=== PATIENT | male | born 1960 | race Caucasian/White ===

== ENCOUNTER 2019-10-23 15:27 | Inpatient (IN) | payer BC, OTHER, SELFPAY ==
[2019-10-23] MEDS ORDERED: Acetaminophen 325 MG TAB PO PRN (18:21)
[2019-10-23] MEDS ORDERED: Guaifenesin DM 100-10/5 ML UDCUP PO PRN (18:21)
--- NOTE | 2019-10-23 18:32 | PDOC.HHP ---
Hospitalist HPI - History of Present Illness SOB History of Present Illness: PCP: Dr. Varela Glennie The patient is a 59/M with PMH significant for HTN and MEHNAZ that presents for the above complaint. The patient reports gradual onset of SOB over the past 3 weeks. Reports associated intermittent, productive cough, with white sputum and orthopnea. He was waking, feeling SOB over the past several days, so he thought it might be related to his MEHNAZ, so he trialed his CPAP at night, which gave him no improvement with symptoms. On Tuesday, he developed swelling to his Bilateral Lower Extremities. He reports approximately 10 pound weight gain over past month. He denies any chest pain or heart palpitations or light headedness. Denies any recent fever or chills. He has no other complaints at this time. ED Course: [facility] EKG Sinus Tachycardia, and hypertensive Trop 0.21, BNP 1115.2 CXR + bilateral pleural effusions CTA chest negative PE WBC 12.6 COVID test - pending TSh and mag unremarkable Creatinine 1.35 Given: Lasix 20mg IVP Nitro paste 1 inch Allergies: NKDA Home Medications: No home medications Hospitalist ROS - Review of Systems Constitutional: denies: fever, chills, sweats, weakness, malaise, other Eyes: denies: pain, vision change, conjunctivae inflammation, eyelid inflammation, redness, other ENT: denies: ear pain, ear discharge, nose pain, nose discharge, nose congestion , mouth pain, mouth swelling, throat pain, throat swelling, other Respiratory: reports: cough, shortness of breath (gradual), sputum (white) Cardiovascular: reports: orthopnea, edema (BLEs). denies: chest pain, palpitations, paroxysmal noc. dyspnea, light headedness Gastrointestinal: denies: nausea, vomiting, abdominal pain, diarrhea, constipation, melena, hematochezia, other Genitourinary: denies: dysuria, frequency, incontinence, hematuria, retention, other Musculoskeletal: denies: neck pain, shoulder pain, arm pain, back pain, hand pain, leg pain, foot pain, other Skin: denies: rash, lesions, aye, bruising, other Neurological: denies: weakness, numbness, incoordination, change in speech, confusion, seizures, other Hospitalist History - Past Medical History Source: patient Cardiac: reports: HTN (no pharmacotherapy 2/2 weight loss 30 lbs) Pulmonary: reports: Other (MEHNAZ, does not use CPAP 2/2 weight loss) - Social History Tobacco Type: cigars Alcohol: reports: Rare Drugs: reports: none Living Situation: With Family 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, in [place], insurance sales Activity level: independent ambulation - Exam General Appearance: NAD, awake alert Eye: anicteric sclera ENT: normocephalic atraumatic Neck: supple, no JVD Heart: RRR, no murmur, no gallops, no rubs, normal peripheral pulses Heart - other findings: tachycardic Respiratory: no tachypnea, rales, rhonchi, wheezes Gastrointestinal: soft, non-tender, normal bowel sounds, no guarding, no rigidity Extremities: no cyanosis, 1+ LE edema Extremities - other findings: BLEs Neurological: no focal deficits Musculoskeletal: normal tone, normal strength Psychiatric: normal affect, A&O x 3 Hospitalist Results - EKG Interpretation EKG: sinus tachycardia - Radiology Interpretation CT scan - chest Status: report reviewed by oh Hospitalist H&P A/P - Problem (1) Acute exacerbation of CHF (congestive heart failure) Code(s): I50.9 - HEART FAILURE, UNSPECIFIED Status: Acute Assessment and Plan: Admit to telemetry floor, observation status Expected length of stay less than [address], CXR B pleural effusion, CTA negative PE BNP 1115, Trop 0.21 w/ BLE swelling Given 20mg IVP lasix in ER, 1700 UOP Continue lasix 20mg IVP daily echocardiogram DW, fluid restriction Nitropaste, ASA Check FLP (2) BRADLY (acute kidney injury) Code(s): N17.9 - ACUTE KIDNEY FAILURE, UNSPECIFIED Status: Acute Assessment and Plan: Mild, creatinine 1.35 Likely pre renal Will recheck in am (3) Suspected COVID-19 virus infection Code(s): Z20.828 - CONTACT W AND EXPOSURE TO OTH VIRAL COMMUNICABLE DISEASES Status: Acute Assessment and Plan: Droplet precautions COVID test pending (4) Proteinuria Code(s): R80.9 - PROTEINURIA, UNSPECIFIED Status: Acute Assessment and Plan: UA protein 300 Will check urine creatinine (5) HTN (hypertension) Code(s): I10 - ESSENTIAL (PRIMARY) HYPERTENSION Status: Chronic Assessment and Plan: Patient has no pharmacotherapy secondary to weight loss/lifestyle changes Will monitor BP (6) MEHNAZ (obstructive sleep apnea) Code(s): G47.33 - OBSTRUCTIVE SLEEP APNEA (ADULT) (PEDIATRIC) Status: Chronic Assessment and Plan: Patient does not use CPAP secondary to weight loss/Lifestyle changes - Plan Plan: Consult cardiac rehab Pepcid GI prophylaxis Heparin DVT prophylaxis Full Code MPOA is Patti Cruz at [phone] Hernandez
[2019-10-23 19:09] LABS: Troponin I 0.033 ng/mL (< 0.028)
[2019-10-23] MEDS: Nitroglycerin 2% Ointment 1 INCH/1 GM Packet TOP SCH (22:29)
[2019-10-23] MEDS: Famotidine 20 MG TAB PO SCH (22:29)
[2019-10-24 05:00] LABS: #Basophils 0.1 thou/uL (0.0-0.2); #Eosinphils 0.4 thou/uL (0.0-0.7); #Lymphocytes 2.8 thou/uL (1.20-3.40); #Neutrophils 6.5 thou/uL (1.40-6.50); %Eosinophils 4.1 % (0.0-10.0); %Lymphocytes 25.9 % (21.0-51.0); %Monocytes 9.2 % (0.0-10.0); %Neutrophils 59.9 % (42.0-75.0); Hemoglobin 14.5 g/dL (14.0-18.0); Mean Corpuscular HGB CONC 32.4 g/dL (32.0-36.0); Mean Corpuscular Hemoglobin 30.4 pg (27.0-31.0); Mean Corpuscular Volume 93.8 fL (78.0-98.0); Mean Platelet Volume 8.7 fL (7.4-10.4); Platelet Count 217 thou/uL (130-400); Red Blood Cell (RBC) Count 4.75 mill/uL (4.70-6.10); White Blood Cell (WBC) Count 10.8 thou/uL (4.8-10.8)
[2019-10-24 05:27] LABS: Anion Gap 15 mmol/L (10-20); BUN (Urea Nitrogen) 14 mg/dL (8.4-25.7); Calc. Creatinine Clearance 99 mL/min (70-130); Calcium 8.8 mg/dL (7.8-10.44); Carbon Dioxide 23 mmol/L (22-29); Cardiac Risk 6.1 (Less than 4.5); Chloride 107 mmol/L (98-107); Cholesterol 122 mg/dl (< 200 Desired); Estimated GFR-MDRD 61; Glucose 94 mg/dL (70-105); HDL Cholesterol 20 mg/dL (>60 Neg Risk); LDL Cholesterol, Calculated 87 mg/dL; Potassium 3.8 mmol/L (3.5-5.1); Sodium 141 mmol/L (136-145); Triglycerides 73 mg/dL (Less than 150)
[2019-10-24] MEDS ORDERED: Furosemide 20 MG/2 ML VIAL SLOW IVP SCH (06:00)
[2019-10-24] MEDS: Nitroglycerin 2% Ointment 1 INCH/1 GM Packet TOP SCH ×3 (06:25→21:03)
--- NOTE | 2019-10-24 07:58 | ULT ---
VENOUS DOPPLER ULTRASOUND OF THE RIGHT LOWER EXTREMITY: HISTORY: Right lower extremity pain and edema. TECHNIQUE: Tran scale ultrasound with color and spectral Doppler imaging of the deep venous system of the right lower extremity was performed. FINDINGS: There is good flow, compression, and augmentation noted in the right common femoral, femoral, deep fe moral, popliteal, posterior tibial, and greater saphenous veins. IMPRESSION: No evidence of deep vein thrombosis in the right lower extremity. POS: MARTINA
[2019-10-24] MEDS ORDERED: Enoxaparin Sodium 40 MG/0.4 ML SYRINGE SC SCH (09:00)
[2019-10-24] MEDS: Famotidine 20 MG TAB PO SCH ×2 (09:05→20:51)
[2019-10-24] MEDS: Aspirin Chewable 81 MG TAB PO SCH (09:05)
--- NOTE | 2019-10-24 12:53 | PDOC.HOSPP ---
- Subjective Encounter Date: 10/24/19 Encounter Time: 09:50 Subjective: denies any CP; covid neg. - Objective Vital Signs & Weight: Vital Signs (12 hours) Temp Pulse Resp BP Pulse Ox 10/24/19 12:30 98.0 F 119 H 20 121/85 96 10/24/19 08:55 98.6 F 114 H 16 140/95 H 95 10/24/19 06:00 97.7 F 101 H 22 H 120/90 95 Weight Weight 228 lb I&O: 10/23/19 10/24/19 10/25/19 06:59 06:59 06:59 Intake Total 1080 480 Output Total 2650 950 Balance -1570 -470 Result Diagrams: 10/24/19 04:43 10/24/19 04:43 Hospitalist ROS - Medication Medications: Active Medications Generic Name Dose Route Start Last Admin Trade Name Freq PRN Reason Stop Dose Admin Acetaminophen 650 mg 10/23/19 18:21 10/23/19 23:21 Tylenol PO 650 mg Q4H PRN Administration Headache/Fever/Mild Pain (1-3) Aspirin 81 mg 10/24/19 09:00 10/24/19 09:05 Aspirin Chewable PO 81 mg DAILY LAVERNE Administration Enoxaparin Sodium 40 mg 10/24/19 09:00 10/24/19 09:04 Lovenox SC 40 mg DAILY LAVERNE Administration Famotidine 20 mg 10/23/19 21:00 10/24/19 09:05 Pepcid PO 20 mg BID LAVERNE Administration Nitroglycerin 0.5 inch 10/23/19 22:00 10/24/19 06:25 Nitro-Bid 2% Ointment TOP 0.5 inch Q8HR LAVERNE Administration Sodium Chloride 10 ml 10/23/19 18:21 10/24/19 09:04 Flush - Normal Saline IVF 10 ml PRN PRN Administration Saline Flush - Exam General Appearance: NAD, awake alert Eye: PERRL ENT: normocephalic atraumatic Neck: supple Heart: RRR Respiratory: CTAB, normal chest expansion Gastrointestinal: soft, normal bowel sounds Neurological: no focal deficits Hosp A/P - Plan (1) Acute exacerbation of CHF (congestive heart failure) --i/output and wts daily - increased lasix to 40 bid -echocardiogram -Nitropaste, ASA -it does not appear that he is on any BP meds at home Abnomal troponin --type II, metabolic mismatch with CHF excerbation? Hyperlipidemia with LDL of 87 --goal < 70; start lipitor (2) BRADLY (acute kidney injury) Code(s): N17.9 - ACUTE KIDNEY FAILURE, UNSPECIFIED Status: Acute Assessment and Plan: Mild, creatinine 1.35 Likely pre renal Will recheck in am (3) Suspected COVID-19 virus infection - neg (4) Proteinuria without diabetes? -very mild < 10 - will get a1c, though BG < 100 - tachycardia and elev BP (5) HTN (hypertension) -no home meds - starting empirically on lopressor until echo rpt reviewed (6) MEHNAZ (obstructive sleep apnea)- Patient does not use CPAP secondary to weight loss/Lifestyle changes MPOA is Patti Cruz at [phone]
[2019-10-24] MEDS ORDERED: Metoprolol Tartrate 5 MG/5 ML VIAL IVP PRN (13:01)
[2019-10-24] MEDS: Furosemide 40 MG/4 ML VIAL SLOW IVP SCH (15:33)
[2019-10-24] MEDS ORDERED: Digoxin 0.5 MG/2 ML AMP SLOW IVP SCH (16:45)
[2019-10-24] MEDS ORDERED: Communication Order-Pharmacy FS SCH (18:30)
[2019-10-24] MEDS: Atorvastatin Calcium 20 MG TAB PO SCH (20:52)
[2019-10-24] MEDS ORDERED: Metoprolol Tartrate 25 MG TAB PO SCH ×2 (21:00)
--- NOTE | 2019-10-25 01:16 | CON ---
DATE OF CONSULTATION: HISTORY: María Cruz is a 59-year-old white male without any previous cardiac problems. He denies ever having any chest discomfort, although at times, he may have a flutter feeling in his chest over the last 1 to 2 seconds. In the last week of May,, he had intense pain between his scapulae associated with nause, vomiting and diaphoresis. This lasted 4 hours and he went to the ER in [place]. This was diagnosed as a back spasm He started noticing exertional dyspnea 3 weeks ago. He also has been having PND and orthopnea. When this started, he thought that his obstructive sleep apnea was returning and so he got his CPAP machine out and tried that, however, that did not seem to help. He then started noticing lower extremity edema and approximately 10-pound weight gain over a month. He denies any fever or chills. He would have cough productive of white sputum. PAST MEDICAL HISTORY: History of obstructive sleep apnea. He used CPAP machine for approximately 3 years, but then 12 years ago after he lost a lot of weight, he stopped using it. Also, he was on blood pressure medication around that time, but once he lost all the weight, got off the blood pressure medicine. He denies any history of hypercholesterolemia or diabetes. MEDICATIONS: None. ALLERGIES: NONE. OPERATION: Retina surgery. SOCIAL HISTORY: He does not smoke. He may have 4 to 5 beers per week. 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 FAMILY HISTORY: Remarkable for father who had myocardial infarction at age 48, but survived. REVIEW OF SYSTEMS: A 10-point review of systems is otherwise unremarkable. PHYSICAL EXAMINATION: VITAL SIGNS: Blood pressure 118/89, pulse of 102. HEENT: PERRL. NECK: Supple. CHEST: Reveals crackles at the bases. CARDIOVASCULAR: S1 and S2 normal without any S3, S4, or murmurs. Carotid upstrokes normal without bruits. ABDOMEN: Normal bowel sounds without tenderness or organomegaly. EXTREMITIES: Reveal no clubbing or cyanosis. He does have 1+ pretibial edema. NEUROLOGIC: Grossly intact. SKIN: Warm and dry. LABORATORY DATA AND DIAGNOSTIC DATA: EKG reveals sinus tachycardia with a rate of 120 per minute with PVCs, multifocal. Also there is evidence of extensive anterolateral infarction. He has low voltage. Echocardiogram revealed mild left atrial and mild left ventricular enlargement. There was severe left ventricular dysfunction with ejection fraction of 15% to 20% with dyskinetic motion of the apex. There is moderate mitral regurgitation, and [id number] tricuspid regurgitation. CBC is unremarkable. Sodium 141, potassium 3.8, chloride 107, carbon dioxide 23, BUN 14, creatinine 1.22. Troponin I is up to 0.033. BNP 1044.4. Cholesterol 122, triglycerides 73, HDL 20, LDL 87. TSH is normal. Chest x-ray reveals small bilateral effusions. Chest CTA revealed no evidence of pulmonary emboli. There is a small to moderate size bilateral pleural effusions and mild pulmonary interstitial edema. IMPRESSION: 1. Acute systolic congestive heart failure. 2. Severe cardiomyopathy with ejection fraction of 15% to 20% with apical dyskinesis. 3. Probable large anterolateral infarction in the past. In May he had 4 hours of back pain, nausea, vomiting and diaphoresis. 4. History of hypertension. 5. History of obstructive sleep apnea, which resolved, and he has not used CPAP for 12 years. 6. Positive family history. 7. Four to five beers per week. 8. LDL 87. RECOMMENDATIONS: With his severe left ventricular dysfunction, he will be switched from metoprolol to carvedilol. We did discuss possible use of Entresto. However, he does not have a drug insurance plan and he does not think he would be able to afford that and so eventually he will be placed on COREY inhibitor. He will continue to be diuresed. We discussed possible eventual need of an implantable defibrillator and the use of a LifeVest until that time. With his apical dyskinesis and the findings on EKG, he probably has had an anterolateral myocardial infarction in the past, possibly the last week in May when he had 4 hours of back pain.. It was recommended that he undergo cardiac catheterization. Risks of this were discussed including , myocardial infarction, dye reaction, vascular injury, CVA, transfusion, limb loss, renal loss, etc. Also risks of intervention with PTCA and stent placement were discussed including , myocardial infarction, emergent CABG, restenosis, stent thrombosis, vessel perforation, etc. He has no history of gastrointestinal bleeding or stroke. He does not have any upcoming surgeries. A drug-eluting stent will be placed if needed. He will be reassessed in the morning in terms of his breathing and how his night went prior to catheterization. Job ID: [id number] MTDD
[2019-10-25] MEDS: Furosemide 40 MG/4 ML VIAL SLOW IVP SCH ×2 (04:26→15:24)
[2019-10-25] MEDS ORDERED: Sodium Chloride 0.9% 1,000 ML IV SCH ×2 (06:00→10:36)
[2019-10-25] MEDS: Nitroglycerin 2% Ointment 1 INCH/1 GM Packet TOP SCH ×3 (06:05→21:05)
[2019-10-25] MEDS: Aspirin Chewable 81 MG TAB PO SCH (06:06)
[2019-10-25] MEDS: Famotidine 20 MG TAB PO SCH ×2 (06:06→20:26)
[2019-10-25] MEDS ORDERED: Carvedilol 6.25 MG TAB PO SCH ×3 (08:00→12:15)
[2019-10-25] MEDS ORDERED: Heparin 10,000 UNITS/1 ML VIAL ONE (08:38)
[2019-10-25] MEDS ORDERED: Iopamidol 370 76% 100 ML VIAL ONE (09:34)
[2019-10-25] MEDS ORDERED: Iopamidol 370 76% 50 ML VIAL FS ONE (09:34)
[2019-10-25] MEDS ORDERED: Fentanyl 100 MCG/2 ML VIAL ONE (09:39)
[2019-10-25] MEDS ORDERED: Midazolam HCl 2 mg/2 ml Vial ONE (09:39)
[2019-10-25] MEDS ORDERED: Furosemide 40 MG/4 ML VIAL ONE (10:12)
[2019-10-25] MEDS ORDERED: Protamine Sulfate 50 MG/5 ML VIAL ONE (10:16)
[2019-10-25] MEDS ORDERED: Acetaminophen/Codeine 30-300mg Tablet PO PRN ×2 (10:34)
[2019-10-25] MEDS ORDERED: Nitroglycerin 0.4 MG TAB (25 Tab Bottle) SL PRN (10:34)
[2019-10-25] MEDS ORDERED: Sodium Chloride 0.9% 200 ML IV PRN (10:34)
[2019-10-25] MEDS: Lisinopril 5 MG TAB PO SCH (12:04)
[2019-10-25] MEDS ORDERED: Communication Order-Pharmacy FS PRN (13:00)
--- NOTE | 2019-10-25 13:50 | PDOC.HOSPP ---
- Subjective Encounter Date: 10/25/19 Encounter Time: 11:50 Subjective: cath rpt reviewed; it appears CTS will be involved. echo apial dykinesia, RLeg - no DVT BNP > 1000; care plan d/w both of them. - Objective Vital Signs & Weight: Vital Signs (12 hours) Temp Pulse Resp BP Pulse Ox 10/25/19 11:45 98.2 F 109 H 20 139/92 H 93 L 10/25/19 07:46 98.0 F 105 H 14 126/90 95 10/25/19 04:00 97.9 F 115 H 146/105 H 94 L Weight Weight 225 lb 4.8 oz I&O: 10/24/19 10/25/19 10/26/19 06:59 06:59 06:59 Intake Total 1080 840 Output Total 2652 4295 Balance -4080 -714 Result Diagrams: 10/24/19 04:43 10/24/19 04:43 Hospitalist ROS - Medication Medications: Active Medications Generic Name Dose Route Start Last Admin Trade Name Freq PRN Reason Stop Dose Admin Acetaminophen 650 mg 10/23/19 18:21 10/23/19 23:21 Tylenol PO 10/26/19 08:59 650 mg Q4H PRN Administration Headache/Fever/Mild Pain (1-3) Atorvastatin Calcium 20 mg 10/24/19 21:00 10/24/19 20:52 Lipitor PO 10/26/19 08:59 20 mg HS LAVERNE Administration Carvedilol 6.25 mg 10/25/19 12:15 10/25/19 12:09 Coreg PO 10/25/19 14:15 6.25 mg NOW LAVERNE Administration Famotidine 20 mg 10/23/19 21:00 10/25/19 06:06 Pepcid PO 10/26/19 08:00 20 mg BID LAVERNE Administration Furosemide 40 mg 10/24/19 14:00 10/25/19 04:26 Lasix SLOW IVP 10/26/19 08:59 Not Given 0600,1400 LAVERNE Sodium Chloride 1,000 mls @ 125 mls/hr 10/25/19 10:36 10/25/19 12:05 Normal Saline 0.9% IV 10/25/19 14:30 1,000 mls .Q8H LAVERNE Administration Lisinopril 5 mg 10/25/19 09:00 10/25/19 12:04 Zestril PO 5 mg DAILY LAVERNE Administration Metoprolol Tartrate 5 mg 10/24/19 13:01 10/24/19 16:29 Lopressor IVP 5 mg Q6H PRN Administration Cardiac Arrythmia Nitroglycerin 0.5 inch 10/23/19 22:00 10/25/19 06:05 Nitro-Bid 2% Ointment TOP 10/26/19 08:59 0.5 inch Q8HR LAVERNE Administration Sodium Chloride 10 ml 10/23/19 18:21 10/24/19 09:04 Flush - Normal Saline IVF 10 ml PRN PRN Administration Saline Flush - Exam General Appearance: NAD, awake alert Eye: PERRL ENT: normocephalic atraumatic Neck: supple Heart: RRR, normal peripheral pulses Respiratory: CTAB, normal chest expansion Gastrointestinal: soft, normal bowel sounds Neurological: no focal deficits Hosp A/P - Plan (1) Acute exacerbation of CHF (congestive heart failure) Acute on [facility] sys chf exacerbation --i/output and wts daily - increased lasix to 40 bid -echocardiogram----------> LV dysfn with EF of 20% --apical dyskinesia -Nitropaste, ASA CAD Abnomal troponin --type II, metabolic mismatch with CHF excerbation vs..ischemia -s/p cath -- severe stenosis both in LAD and RCA --plan for CTS eval --TSH in nl range, --a1c pending hyperlipidemia with LDL of 87 --goal < 70; start lipitor (2) BRADLY (acute kidney injury) Code(s): N17.9 - ACUTE KIDNEY FAILURE, UNSPECIFIED Status: Acute Assessment and Plan: Mild, creatinine 1.35 Likely pre renal Will recheck in am (3) Suspected COVID-19 virus infection - neg (4) Proteinuria without diabetes? -very mild < 10 - will get a1c, though BG < 100 - tachycardia and elev BP (5) HTN (hypertension) -no home meds - starting empirically on lopressor until echo rpt reviewed (6) MEHNAZ (obstructive sleep apnea)- Patient does not use CPAP secondary to weight loss/Lifestyle changes MPOA is Patti Cruz at [phone]
[2019-10-25] MEDS: Carvedilol 6.25 MG TAB PO SCH (17:22)
[2019-10-25] MEDS: Atorvastatin Calcium 20 MG TAB PO SCH (20:26)
--- NOTE | 2019-10-25 20:26 | CON ---
DATE OF CONSULTATION: 10/25/2019 REQUESTING PHYSICIAN: Dr. Garcia. PRIMARY CARE PHYSICIAN: Sarah Dyer PA-C CHIEF COMPLAINT: Shortness of breath. HISTORY OF PRESENT ILLNESS: The patient is a 59-year-old man, whose father had a heart attack and underwent open-heart surgery in his 40s, but has no previous known history of coronary artery disease himself. Several months ago, he had an episode of right interscapular back pain associated with nausea and vomiting, that at the time was attributed to a back spasm, but has had no other similar back symptoms. He has not had any chest pain, pressure, squeezing, or heaviness. No symptoms in his arms, shoulders, or jaws consistent with angina. Over the last 3 or 4 weeks, he has been noticing increasing dyspnea on exertion. He occasionally has had some shortness of breath at rest. He has had some episodes of waking up short of breath consistent with paroxysmal nocturnal dyspnea. Over the last month, he has noticed that his weight has gone up by about 10 pounds, but it was not until about the last week that had been able to tell that he had some lower extremity edema. At first, it was simply his feet and ankles, but by the time he presented to the emergency room with significant shortness of breath. He had edema up into his thighs, more notable on the right than on the left. He was given Lasix in the outlying emergency room and Lasix has been repeated on b.i.d. coming here, and he has had around 4 L of documented urine output in the last 2 days. His peripheral edema has improved as has his breathing. PAST MEDICAL HISTORY: The patient's past medical history significant for hypertension and obstructive sleep apnea. He said that his baseline weight was about 240 pounds. He lost down to about 200 pounds and he no longer needed his CPAP and his blood pressure came under better control. He says gradually over the last 10 years or so, his weight has come back up to around 240 pounds. He says that his blood pressure has not been as bad as it had been previously, but he has noted that his diastolic blood pressure has for some time been in the upper 80s to low 90s. The patient has not been on any medications at home. CURRENT MEDICATIONS: His current medications are: 1. Aspirin 81 mg a day. 2. Lipitor 20 mg at bedtime. 3. Coreg 12.5 mg b.i.d. 4. Lisinopril 5 mg a day. 5. q.8 hours. 6. Lasix 40 mg IV b.i.d. FAMILY HISTORY: Significant for his father, who had an FL in his 40s. He has a younger brother and younger sister, who both have hypertension, but no known history of coronary artery disease. REVIEW OF SYSTEMS: Notable for his increasing dyspnea on exertion, orthopnea, PND, and dependent edema. Negative for any chest pain, pressure, or squeezing. It is negative for any transient eye, speech, facial, or extremity symptoms consistent with TIAs. It is negative for any crampy calf, hip, thigh or buttock pain consistent with claudication. Negative for any paresthesias. PHYSICAL EXAMINATION: GENERAL: He is in no distress, breathing comfortably with his head of his bed minimally elevated. VITAL SIGNS: He is 5 feet 10 inches and weighs 240 pounds. On arrival in the emergency room, his heart rate was sinus rhythm at 128, blood pressure 157/117, but he had 100% O2 saturation on room air. He received 20 mg of Lasix IV about 2 hours later and about 2-1/2 hours after that, his heart rate was 105. His blood pressure 139/117 and his room air sats were 97%. Here, his heart rates and blood pressures have gradually come down with his heart rates being in the 105 to 115 range. His blood pressures in the 140/90 range, 2 L nasal cannula is 93% to 95% sats. His maximum temperature has been 98.9. His urine output that has been measured since admission has been 4425 mL. Documented weights have been 228 yesterday and 225.25 pounds today. HEENT: He has no xanthelasma. NECK: No JVD. No carotid bruits. CHEST: Clear to auscultation. He has a regular rate and rhythm without murmur or gallop. ABDOMEN: His abdomen is moderately obese, soft, and nontender. No masses or bruits. No fluid waves. EXTREMITIES: He has palpable radial pulses bilaterally. He has good capillary refill bilaterally with ulnar flow only on Leonard's testing. He has trace pretibial edema. No obvious varicosities. He has easily palpable dorsalis pedis and posterior tibial pulses bilaterally. NEUROLOGIC: Grossly nonfocal. LABORATORY DATA: His white count was 12.6, hemoglobin 16.6, hematocrit 51.8, and platelets 304,000. His electrolytes were normal, glucose 113, BUN 15, creatinine 1.35 with an estimated GFR 54. The following morning, his glucose was 94, BUN 14, creatinine 1.22, calcium is 9.3, magnesium 2.0. Bilirubin is 1.7, alkaline phosphatase 69, AST 22, ALT 63, protein 7.2, albumin 4.4. Triglycerides fasting were 73, cholesterol 122, LDL 87, HDL 20. TSH was 3.4465 on presentation and 1.9787 yesterday morning. His initial troponin was 0.021, about 7 hours later was 0.033 and 2-1/2 hours after that 0.030. His BNP, however, was 1115.2 and yesterday morning was 1420. His chest x-ray and chest CT both show borderline cardiomegaly with cardiothoracic ratio of approximately 0.62 [address] measured on his CT scan. He has some prominent vascular markings in fluffiness of his keith consistent with pulmonary edema and no evidence of pulmonary embolism. His EKG shows absence of R-waves in leads V1 through V6. His cardiac catheterization shows either a right dominant or codominant system with complex 80% or 90% lesion in the right coronary just beyond an acute marginal. His left main is normal. He has some mild proximal disease in his LAD, but then it occludes just after one of three very small high diagonals just beyond the level of the first septal operator supply. The LAD fills by [id number] collaterals and a diagonal that comes off at about the level of the occlusion looks like it might have some proximal disease and might be big enough to graft. His circumflex system has a fairly large OM1 with about a 70% lesion in it. There is some high-grade disease in the distal groove circumflex, but the distal circumflex vessels all appeared to be small. His LVEF is around 20%. It corresponds with his echocardiogram that shows 15% to 20% EF. I do not appreciate the apical dyskinesis on LV gram that was described in the echo. His LV pressure was 120/13 with an EDP of 29, aortic pressure on pullback was 116/85 with a mean of 99. IMPRESSION AND RECOMMENDATIONS: I agree with Dr. Garcia that putting it all together, this severe episode of interscapular pain that was quite unlike. His chronic mild low back pain could very well have represented in the anterolateral FL that he appears to have had. He has had gradually worsening failure symptoms over the last month, but currently after diuresing several liters, appears to be fairly well compensated with an enlarged left atrium on echocardiography and history of sleep apnea as well as his low EF. He is fairly likely to have issues with atrial fibrillation, though at the time of surgical revascularization if feasible, we will consider left atrial appendage ligation. Given his relative young age, we will look into use of the radial artery for his circumflex system since he is left-hand dominant, I will look at the right radial artery. Job ID: [id number]
[2019-10-25] MEDS ORDERED: Docusate 100 MG CAP PO SCH (21:00)
[2019-10-26] MEDS: Carvedilol 6.25 MG TAB PO SCH (04:56)
[2019-10-26] MEDS: Lisinopril 5 MG TAB PO SCH (04:57)
[2019-10-26 05:07] LABS: #Basophils 0.1 thou/uL (0.0-0.2); #Eosinphils 0.6 thou/uL (0.0-0.7); #Lymphocytes 2.8 thou/uL (1.20-3.40); #Monocytes 0.8 thou/uL (0.11-0.59); #Neutrophils 4.5 thou/uL (1.40-6.50); %Basophils 0.7 % (0.0-1.0); %Eosinophils 6.8 % (0.0-10.0); %Lymphocytes 31.7 % (21.0-51.0); %Monocytes 9.2 % (0.0-10.0); %Neutrophils 51.7 % (42.0-75.0); Hemoglobin 14.4 g/dL (14.0-18.0); Mean Corpuscular HGB CONC 32.1 g/dL (32.0-36.0); Mean Corpuscular Hemoglobin 30.3 pg (27.0-31.0); Mean Corpuscular Volume 94.5 fL (78.0-98.0); Platelet Count 213 thou/uL (130-400); Red Blood Cell (RBC) Count 4.73 mill/uL (4.70-6.10); White Blood Cell (WBC) Count 8.7 thou/uL (4.8-10.8)
[2019-10-26 05:11] LABS: INR-International Normal Ratio 1.1; PTT 30.8 SEC (22.9-36.1); Prothrombin Time 14.5 sec (12.0-14.7)
[2019-10-26] MEDS: Nitroglycerin 2% Ointment 1 INCH/1 GM Packet TOP SCH (05:23)
[2019-10-26] MEDS: Furosemide 40 MG/4 ML VIAL SLOW IVP SCH (05:23)
[2019-10-26 05:33] LABS: Anion Gap 13 mmol/L (10-20); BUN (Urea Nitrogen) 16 mg/dL (8.4-25.7); Calc. Creatinine Clearance 84 mL/min (70-130); Calcium 8.5 mg/dL (7.8-10.44); Carbon Dioxide 26 mmol/L (22-29); Chloride 105 mmol/L (98-107); Estimated GFR-MDRD 55; Glucose 94 mg/dL (70-105); Potassium 3.3 mmol/L (3.5-5.1); Sodium 141 mmol/L (136-145)
[2019-10-26] MEDS ORDERED: Albumin 5% 500 ML ONE (06:37)
[2019-10-26] MEDS ORDERED: Fentanyl 250 MCG/5 ML VIAL ONE (06:44)
[2019-10-26] MEDS ORDERED: Midazolam HCl 5 mg/5 ml Vial ONE (06:44)
[2019-10-26] MEDS ORDERED: Dexmedetomidine 200 MCG/2 ML VIAL ONE (06:45)
[2019-10-26] MEDS ORDERED: Midazolam HCl 2 mg/2 ml Vial ONE (07:14)
[2019-10-26] MEDS ORDERED: CEFAZOLIN 2 GM in Premix Bag 1 BAG IVPB SCH (07:15)
[2019-10-26] MEDS ORDERED: Milrinone 10 MG/10 ML VIAL ONE (07:23)
[2019-10-26] MEDS ORDERED: Ondansetron ODT 4 MG TAB ONE (07:53)
[2019-10-26] MEDS ORDERED: Potassium Chloride 20 MEQ TAB PO SCH ×2 (08:00→11:15)
[2019-10-26] MEDS ORDERED: Papaverine 60 MG/2 ML VIAL ONE ×2 (08:29→14:21)
[2019-10-26] MEDS ORDERED: Heparin 5,000 UNITS/ML VIAL ONE ×2 (09:11→14:21)
[2019-10-26] MEDS ORDERED: EPINEPHRINE 1 MG/10 ML-NACL IV ONE ×3 (13:37→13:39)
[2019-10-26] MEDS ORDERED: PHENYLEPHRINE-NS 100 MCG/ML 10 ML SYRINGE ONE (13:38)
[2019-10-26] MEDS ORDERED: Guaifenesin DM 100-10/5 ML UDCUP PO PRN (14:03)
[2019-10-26] MEDS ORDERED: Hetastarch 6% 500 ML 500 ML IVPB PRN (14:03)
[2019-10-26] MEDS ORDERED: Morphine 2 MG/ML SYRINGE SLOW IVP PRN ×2 (14:03→19:46)
[2019-10-26] MEDS ORDERED: Acetaminophen 325 MG TAB PO PRN (14:03)
[2019-10-26] MEDS ORDERED: Fentanyl 100 MCG/2 ML VIAL SLOW IVP PRN ×2 (14:03)
[2019-10-26] MEDS ORDERED: Promethazine HCl 25 MG/ML VIAL IM PRN (14:03)
[2019-10-26] MEDS ORDERED: Bisacodyl 5 MG TAB PO PRN (14:03)
[2019-10-26] MEDS ORDERED: HYDROcodone/Acetaminophen 5/325 mg Tablet PO PRN ×2 (14:03)
[2019-10-26] MEDS ORDERED: Ondansetron PF 4 MG/2 ML Vial IVP PRN (14:03)
[2019-10-26] MEDS ORDERED: Nitroglycerin 50 MG/250 ML BOT 250 ML IVPB PRN (14:03)
[2019-10-26] MEDS ORDERED: Post-Op Insulin Drip Protocol IVPB ONE (14:03)
[2019-10-26] MEDS ORDERED: niCARdipine 25 MG in Sodium Chloride 0.9% 250 ML 250 ML IVPB PRN (14:03)
[2019-10-26] MEDS ORDERED: Mag-Al 1200 mg/1200 mg/30 ML UDCUP PO PRN (14:03)
[2019-10-26] MEDS ORDERED: Bisacodyl 10 MG SUPP PR PRN (14:03)
[2019-10-26] MEDS ORDERED: hydrALAZINE 20 MG/ML VIAL SLOW IVP PRN (14:03)
[2019-10-26] MEDS ORDERED: Dextrose 50% Abboject 50 ML SYRINGE SLOW IVP PRN (14:16)
[2019-10-26] MEDS ORDERED: Dextrose 5% in Water 1,000 ML IV PRN (14:16)
[2019-10-26] MEDS ORDERED: HUMULIN R 100 UNITS in Sodium Chloride 0.9% 100 ML IVPB SCH (14:16)
[2019-10-26] MEDS ORDERED: Lidocaine 1% PF 5 ML VIAL ONE (14:18)
[2019-10-26] MEDS ORDERED: Vecuronium 10 MG VIAL ONE (14:18)
[2019-10-26] MEDS ORDERED: Potassium Chloride 60 MEQ/30 ML VIAL ONE (14:21)
[2019-10-26] MEDS ORDERED: Magnesium Sulfate 1 GM/2 ML VIAL ONE (14:21)
[2019-10-26] MEDS ORDERED: Cardioplegic Soln 1,000 ML BAG ONE (14:21)
[2019-10-26] MEDS ORDERED: Aminocaproic Acid 5 GM/20 ML VIAL ONE (14:21)
[2019-10-26] MEDS ORDERED: Heparin 30,000 units/30 ml VIAL ONE (14:21)
[2019-10-26] MEDS ORDERED: EPINEPHrine 1 MG/ML AMP ONE (14:21)
[2019-10-26] MEDS ORDERED: Calcium Chloride 1 GM/10 ML Abboject SYRINGE ONE (14:21)
[2019-10-26] MEDS ORDERED: Sodium Bicarb 50 MEQ/50 ML Abboject 8.4% SYRINGE ONE (14:21)
[2019-10-26] MEDS ORDERED: Thrombin 5000 UNITS/5 ML VIAL ONE (14:21)
[2019-10-26] MEDS ORDERED: Norepinephrine 4 MG/4 ML VIAL ONE (14:21)
[2019-10-26] MEDS ORDERED: Lidocaine 2% PF 5 ML VIAL ONE (14:21)
--- NOTE | 2019-10-26 15:44 | PDOC.HOSPP ---
- Subjective Encounter Date: 10/26/19 Encounter Time: 03:53 Subjective: pt just returning from PACU, s/p CABG - Objective Vital Signs & Weight: Vital Signs (12 hours) Pulse BP 10/26/19 04:57 99 10/26/19 04:56 112/86 Weight Weight 222 lb 3.2 oz I&O: 10/25/19 10/26/19 10/27/19 06:59 06:59 06:59 Intake Total 840 2044 Output Total 1775 2600 Balance -935 -956 Result Diagrams: 10/26/19 04:41 10/26/19 04:41 Additional Labs: Accuchecks 10/26/19 10/26/19 10/26/19 15:00 14:05 13:06 POC Glucose 145 H 173 H 158 H 10/26/19 10/26/19 10/26/19 12:36 12:06 11:26 POC Glucose 136 H 147 H 156 H 10/26/19 10/26/19 10:46 08:34 POC Glucose 161 H 144 H - Exam General Appearance: NAD, awake alert Eye: PERRL ENT: normocephalic atraumatic Neck: supple Heart: RRR Heart - other findings: chest dressing, sutures Respiratory: CTAB Gastrointestinal: soft, normal bowel sounds Neurological: no focal deficits Hosp A/P - Plan (1) Acute exacerbation of CHF (congestive heart failure) Acute on [facility] sys chf exacerbation --i/output and wts daily - increased lasix to 40 bid -echocardiogram----------> LV dysfn with EF of 20% --apical dyskinesia -Nitropaste, ASA CAD Abnomal troponin --type II, metabolic mismatch with CHF excerbation vs..ischemia -s/p cath -- severe stenosis both in LAD and RCA --TSH in nl range, --a1c pending --s/p CABG hyperlipidemia with LDL of 87 --goal < 70; start lipitor (2) BRADLY (acute kidney injury) Code(s): N17.9 - ACUTE KIDNEY FAILURE, UNSPECIFIED Status: Acute Assessment and Plan: Mild, creatinine 1.35 Likely pre renal Will recheck in am (3) Suspected COVID-19 virus infection - neg (4) Proteinuria without diabetes? -very mild < 10 - will get a1c, though BG < 100 - tachycardia and elev BP (5) HTN (hypertension) -no home meds - starting empirically on lopressor until echo rpt reviewed (6) MEHNAZ (obstructive sleep apnea)- Patient does not use CPAP secondary to weight loss/Lifestyle changes SHEBA is Patti Cruz at [phone] cardiac rehab, when able.
[2019-10-26] MEDS: Sodium Chloride 0.9% 1,000 ML IV SCH (15:45)
[2019-10-26 16:02] LABS: Hemoglobin 13.1 g/dL (14.0-18.0); INR-International Normal Ratio 1.6; Mean Corpuscular HGB CONC 33.1 g/dL (32.0-36.0); Mean Corpuscular Hemoglobin 31.1 pg (27.0-31.0); Mean Corpuscular Volume 93.9 fL (78.0-98.0); Mean Platelet Volume 8.7 fL (7.4-10.4); PTT 35.1 SEC (22.9-36.1); Platelet Count 144 thou/uL (130-400); Prothrombin Time 19.1 sec (12.0-14.7); White Blood Cell (WBC) Count 21.9 thou/uL (4.8-10.8)
[2019-10-26 16:17] LABS: Anion Gap 13 mmol/L (10-20); BUN (Urea Nitrogen) 16 mg/dL (8.4-25.7); Calc. Creatinine Clearance 102 mL/min (70-130); Calcium 7.3 mg/dL (7.8-10.44); Carbon Dioxide 20 mmol/L (22-29); Chloride 111 mmol/L (98-107); Estimated GFR-MDRD 68; Glucose 137 mg/dL (70-105); Potassium 3.8 mmol/L (3.5-5.1); Sodium 140 mmol/L (136-145)
[2019-10-26 16:28] LABS: Band 19 % (5-11); Lymphocytes 4 % (21-51); MDiff Complete? YES; Monocytes 4 % (0-10); Neutrophil 70 % (42-75); Platelet Morphology Comment Appears Adequate; Polychromasia SLIGHT = 2-3 cells (100X) (0-2/hpf); Reactive Lymphocytes 2 % (0-10)
[2019-10-26] MEDS: Insulin Regular 300 UNITS/3 ML VIAL SC PRN ×2 (16:29→21:24)
[2019-10-26] MEDS ORDERED: Lidocaine 1% (PF) 30 ML VIAL ONE (16:33)
[2019-10-26 16:52] LABS: Actual Bicarbonate (HCO3a) 18.8 mEq/L (22-28); CO2 Tension 28.4 mmHg (35.0-45.0); Calcium, Ionized 1.08 mmol/L (1.12-1.30); Hemoglobin (Hb) 13.9 g/dL (14.0-18.0); O2 Tension (PaO2), arterial 74.7 mmHg (> 80.0); Potassium - ABG Lab 3.76 mmol/L (3.70-5.30); pH, Arterial 7.44 (7.35-7.45)
[2019-10-26 16:53] LABS: Puncture Site ALINE
--- NOTE | 2019-10-26 17:22 | RAD ---
SINGLE VIEW OF THE CHEST: 10/26/19 COMPARISON: 10/23/19. HISTORY: Status post open heart surgery. FINDINGS: Single view of the chest shows a normal sized cardiomediastinal silhouette. The patient is status pos t sternotomy. There is an endotracheal tube with its tip at the lower border of the clavicles. A cent ral venous catheter is seen with its tip in the superior vena cava. There is no evidence of consolida tion, mass, or pleural effusion. Atelectasis is seen in the left lung baes. IMPRESSION: Appropriate position of lines and tubes status post sternotomy. POS: EAA
[2019-10-26] MEDS: Potassium Chloride 20 MEQ/100 ML PREMIX BAG IVPB PRN (18:14)
--- NOTE | 2019-10-26 18:48 | RAD ---
EXAM: CHEST ONE VIEW: 10/26/19 HISTORY: Postop open heart, chest tube. COMPARISON: 10/26/19. FINDINGS: Endotracheal tube, left subclavian catheter, and chest tubes in place including a chest tube in the l eft inferior chest. Minimal bilateral vascular congestion. Improvement in the pleural effusion when compared to the prior study. No evidence for significant pne umothorax. IMPRESSION: Left inferior chest tube placed. Decrease in the previously noted left pleural fluid. No significant pneumothorax or other new process. POS: RRE
[2019-10-26] MEDS ORDERED: DISCONTINUE PREVIOUS NARCOTIC PAIN MEDICATIONS AND BENZODIAZEPINES FS SCH (19:46)
[2019-10-26] MEDS ORDERED: Propofol 1,000 MG/100 ML VIAL IV PRN (19:46)
[2019-10-26] MEDS ORDERED: Fentanyl BOLUS 250 ML IVPB PRN (19:46)
[2019-10-26] MEDS ORDERED: Lorazepam 2 MG/ML VIAL SLOW IVP PRN (19:46)
[2019-10-26] MEDS ORDERED: Propofol BOLUS 1,000 MG/100 ML VIAL IV PRN (19:46)
[2019-10-26] MEDS ORDERED: fentaNYL Citrate/PF 2,000 MCG in Sodium Chloride 0.9% 60 ML IV SCH (19:46)
[2019-10-26] MEDS: Famotidine/PF 20 mg/2ml Vial SLOW IVP SCH (20:11)
[2019-10-26] MEDS: Norepinephrine 8 MG/0.9% NS 250 ML IVPB PRN (20:11)
[2019-10-26 20:43] LABS: Hemoglobin 13.9 g/dL (14.0-18.0)
[2019-10-26 20:57] LABS: Potassium 4.4 mmol/L (3.5-5.1)
--- NOTE | 2019-10-27 00:21 | OP ---
DATE OF PROCEDURE: 10/26/2019 PROCEDURES PERFORMED: Coronary artery bypass grafting x4, left internal mammary artery to the distal LAD, right radial artery from the aorta to the first obtuse marginal, and reverse greater saphenous vein grafts from the aorta to the 4th diagonal and from the aorta to the PDA. Percutaneous insertion of a 40 mL intra-aortic balloon pump via right common femoral artery with ultrasonographic and fluoroscopic imaging (immediately preoperatively). Ligation of left atrial appendage. PREOPERATIVE DIAGNOSES: Coronary artery disease with ischemic cardiomyopathy and acute on chronic systolic and diastolic heart failure. POSTOPERATIVE DIAGNOSES: Coronary artery disease with ischemic cardiomyopathy and acute on chronic systolic and diastolic heart failure. ELECTRICAL SYSTEMS DRAFTER: Jay Oviedo MD. ANESTHESIA: General endotracheal anesthesia. INDICATIONS FOR PROCEDURE: The patient is a 59-year-old man, who in retrospect several months ago had interscapular back pain that may have represented an anterolateral myocardial infarction. Over about the last month, he has had progressive failure symptoms and presented with marked shortness of breath. He had pulmonary edema, small pleural effusions, and a markedly elevated BNP. Cardiac catheterization demonstrated severe 3-vessel coronary artery disease including occlusion of his LAD just a little bit distal to the first septal shop fitter. He had markedly decreased LV function with an LVEF of around 20% and an LVEDP in the upper 20s. He has been diuresed and clinically much improved. He is now taken to the operating room for surgical revascularization. FINDINGS: The patient had very poor contractility on transesophageal echocardiography and was mildly hypotensive even with pressor support, prompting placement of an intra-aortic balloon pump immediately preoperatively. Pump time was 107 minutes. Cross-clamp time was 56 minutes. He had good quality AIDA, radial artery, and saphenous vein. He had a large heart without any obvious transmural scar. The LAD was about a 1.5 mm thick-walled vessel with scattered plaque. There was a very hard plaque in the LAD, coincident with the origin of a relatively large diagonal that seemed to correspond with the 4th diagonal that came off at the level of the LAD occlusion, it was about a 2 mm vessel that appeared to be fairly good quality. The OM-1 was about a 2 or 2.5 mm vessel, where it was grafted just distal to some visible plaque and just proximal to a major bifurcation. The PDA was about a 1.5 or perhaps 2 mm vessel. The posterolateral branch distally coming off the circumflex system was only about a millimeter vessel as it emerged from the AV groove and was not grafted. DESCRIPTION OF PROCEDURE: After informed consent was obtained, the patient was taken to the operating room and placed in supine position on the operating table. After the induction of general anesthesia, the patient's greater saphenous vein in the left lower extremity was ultrasonographically mapped and marked. Both common femoral arteries were identified ultrasonographically and marked. The patient's left upper chest was prepped and draped in sterile fashion and a triple-lumen central line kit was used to place a left subclavian central line by the Seldinger technique. All 3 ports easily aspirated and flushed. The line was secured to the skin with a suture. The patient's torso, groins, lower extremities, and right upper extremity were prepped and draped in sterile fashion. Because at this point, the patient was already pressor dependent, it was opted to proceed with balloon pump placement rather than simply placing an arterial sheath to be used for balloon pump should it be necessary to wean from bypass. Using micropuncture technique and ultrasound probe in a sterile sleeve, the right common femoral artery was cannulated by the Seldinger technique. The micropuncture sheath was placed over that wire. Over the wire, a 5-Khmer sheath was inserted, and then the dilators from the balloon kit were used over the balloon pump wire to dilate the tract to place a sheath. The balloon pump was measured and inserted and counterpulsation begun with gradual improvement in the patient's blood pressure and with good balloon pump waveforms. A longitudinal incision was then made over the palpable radial pulse at the right wrist. The radial artery was exposed and it was occluded proximally in the wound. There was still a palpable pulse in the radial artery distal to that. The radial artery was then harvested as a skeletonized graft from the level of the wrist to the level of the interosseous artery using small hemoclips and tenotomy scissors to ligate and divide the small side branches. The radial artery was doubly ligated and divided near its origin from the brachial artery just distal to the ulnar and interosseous arteries. There was good back-bleeding from the radial artery. It was doubly ligated and divided distally. A small-bore blunt-tipped needle was used to cannulate the distal end of the radial artery and papaverine solution was used to distend the vessel and to assess for adequacy of control of the side branches. The wound was inspected for hemostasis and then closed in layers with subcutaneous and subcuticular Vicryl. Steri-Strips, sterile dressing, and Bijan wrap were applied and the arm was tucked. The left greater saphenous vein was exposed just above the left knee and then using that incision as a port site, it was endoscopically harvested from groin to about a handbreadth below the knee. Small stab incisions were used for the proximal and distal ligation and division points. The vein was prepared for use as a graft. The port site was closed in layers with subcutaneous and subcuticular Vicryl. Dermabond was ultimately applied to that incision as well as the stab incisions. A median sternotomy was performed. The left pleura was mobilized and the left internal mammary artery was harvested as a skeletonized in-situ graft through an extrapleural exposure from the level of the xiphoid to the level of the subclavian vein. Side branches were controlled with small hemoclips. The patient was heparinized. The mammary was ligated and divided distally. There was good flow through the mammary and it distended nicely with instillation of intraluminal papaverine. The mammary bed was inspected for hemostasis and the medial reflections of the left pleura were mobilized. The mammary bed was inspected for hemostasis and the AIDA retractor was placed with a Hernandez retractor. The pericardium was opened and marsupialized. The aorta was palpated and was soft. A double-concentric pursestring of 2-0 Ethibond was placed in the ascending aorta just distal to the pericardial reflection and a single pursestring was placed in the right atrial appendage. Aortic and venous cannulae were inserted and secured by their pursestrings. The plane between the aorta and the pulmonary artery was developed. Cardiopulmonary bypass was instituted and the patient was systemically cooled. The heart was examined and the vessels to be bypassed were identified. A longitudinal slit was made in the pericardium anterior to the left phrenic nerve, through which the mammary could be passed. An aortic cross-clamp was applied and cardioplegia was administered through an aortic root needle. When arrest have been achieved, attention was turned to the left atrial appendage. It was ligated at its base using 3-0 Prolene suture in 2 layers of running horizontal mattress. Attention was then turned to the first obtuse marginal. It was opened with a Banner blade and [place] scissors. Proximal portion of the harvested radial artery was freshened, spatulated and then anastomosed to the first obtuse marginal with running 7-0 Prolene suture. The anastomosis was tested by flushing cold cardioplegia down the graft. Attention was then turned to the distal right coronary system. The PDA was exposed and opened and reverse greater saphenous vein was anastomosed to it with running 6-0 Prolene suture. It was also tested by flushing cold cardioplegia down the graft. The diagonal that corresponded with the long occluded diagonal that goes down on both [id number] and [id number] injections was identified. It was opened and grafted with reverse saphenous vein in a similar fashion. The LAD was then opened and the mammary anastomosed to it with running 7-0 Prolene and tacked to the epicardium. The aortic cross-clamp was replaced with a partial occluding clamp and aortotomy was made in the ascending aorta with a scalpel and punch, incorporating the root needle site in the more proximal aortotomy. The PDA graft was brought along the right side of the heart and then anastomosed to the proximal aortotomy. The diagonal grafts were brought along the left side of the heart and anastomosed to the more distal aortotomy. An 11 blade scalpel and Demario scissors were used to create a venotomy in the mondragon of the diagonal graft proximal anastomosis. The radial artery graft was trimmed to length and spatulated and anastomosed to the mondragon of that diagonal proximal anastomosis with running 7-0 Prolene. Partial occluding clamp was removed and the vein grafts were de-aired. The bulldogs were removed from all 3 grafts. The anastomoses were inspected for hemostasis. The proximal anastomoses were marked with small hemoclips. The posterior pericardial drain was brought out through a separate incision, secured with suture. Right atrial and right ventricular temporary epicardial pacing wires were placed. About 200 mL of thin bloody fluid was aspirated from the right chest through a rent that had been created in the right pleura. The balloon pump counterpulsation was withheld immediately prior to cannulating the aorta and was reinstituted during construction of the proximal anastomoses with the use of AV sequential pacing, Levophed, and ultimately epinephrine drips and the balloon pump, the patient having already been loaded with Primacor. The patient was slowly weaned from cardiopulmonary bypass. He was observed while the vasoactive drips were titrated. The venous cannula was removed and its pursestring secured with a Fco. The patient tolerated the test dose of protamine. The aortic cannula was removed and its pursestring secured and when approximately half of the protamine had been administered without any deterioration in hemodynamics, the pursestring in the right atrial appendage was secured. An anterior mediastinal drain was placed when hemostasis was adequate. The mediastinal fat and upper portion of the pericardium were loosely reapproximated to cover the aorta on the proximal portions of the vein and radial artery grafts. The inferior medial aspects the pericardium were loosely tacked back together. The cut surfaces of the sternum were treated with vancomycin paste and platelet-rich GPS. The sternum was reapproximated with #7 stainless steel wire after placing an anterior mediastinal drain. The soft tissues were irrigated and treated with platelet- poor GPS. The fascia was closed over the wires with running #1 Vicryl. Subcutaneous tissue was reapproximated with running 2-0 Vicryl and the skin was closed with 3 -0 Vicryl subcuticular suture and Dermabond. Fluoroscopy was used to adjust the position of the IABP. The wounds were dressed and the patient was transported to the intensive care unit in stable condition. Job ID: [id number] MTDD
--- NOTE | 2019-10-27 00:34 | OP ---
DATE OF PROCEDURE: 10/26/2019 PROCEDURE PERFORMED: 36-[place] Island[place] left tube thoracostomy. PREOPERATIVE DIAGNOSES: Left pleural effusion, status post acute heart failure, and status post coronary artery bypass grafting. POSTOPERATIVE DIAGNOSES: Left pleural effusion, status post acute heart failure, and status post coronary artery bypass grafting. ANESTHESIA: 1% lidocaine, local anesthesia with intravenous sedation consisting of 50 mcg of fentanyl. INDICATIONS FOR PROCEDURE: The patient is a 59-year-old man, who presented with progressive heart failure. He is immediately postoperative from a coronary artery bypass grafting. He has a significant A-a gradient on his blood gas and his postoperative chest x-ray shows some modest sized left pleural effusion and a chest tube is now being placed to evacuate that effusion. FINDINGS: Approximately 400 mL of thin serosanguineous fluid evacuated. The postoperative film showed that the chest tube curved around into the costophrenic sulcus, but did not have adequate clearance of the effusion. DESCRIPTION OF PROCEDURE: The patient's left chest was prepped and draped in sterile fashion. Lidocaine was used to infiltrate the skin and subcutaneous tissues. At about the nipple line at the level of the xiphoid, the skin was sharply incised and a subcutaneous tract was developed superiorly and posteriorly. Additional lidocaine was infiltrated over the superior rib margin into the intercostal space. Blunt dissection was used to enter the pleural space and a 36-[place] Islander chest tube was inserted. It was secured to the skin with suture and connected to close suction drainage. It was dressed. Job ID: [id number]
--- NOTE | 2019-10-27 03:36 | CON ---
DATE OF CONSULTATION: HISTORY OF PRESENT ILLNESS: Mr. Cruz is a 59-year-old male with coronary artery bypass grafting today. He came out of the surgery with a balloon pump. We were consulted to follow along with the heart surgeons while he was in the ICU. A chest tube placed on the left after surgery for large effusion apparently. He is being kept sedated per sedation protocol. PAST MEDICAL HISTORY: Remarkable for: 1. Sleep apnea. He used to require CPAP, but lost enough weight where he do not have to use CPAP anymore. 2. Hypertension, but once he lost his weight, he got off his blood pressure medications. SOCIAL HISTORY: He is a nonsmoker. Drinks beer occasionally. MEDICATIONS: He is on no medications prior to admission. ALLERGIES: HE HAD NO DRUG ALLERGIES. FAMILY HISTORY: Positive for vascular disease at young age. REVIEW OF SYSTEMS: Otherwise, not obtainable. PHYSICAL EXAMINATION: GENERAL: He was mechanically ventilated. VITAL SIGNS: Blood pressure 113/77, heart rate , and respiratory rate is per mechanical ventilation. HEENT: He is starting to open his eyes. Sclerae are anicteric. NECK: Without lymphadenopathy. LUNGS: Remarkable for coarse equal breath sounds. HEART: Regular rhythm. Distant S1 and S2. ABDOMEN: Soft. No masses. EXTREMITIES: Warm. LABORATORY DATA: White count 21.9, hemoglobin 13.1, platelets 144. Electrolytes were unremarkable. Postop creatinine is 1.1, potassium 3.8. Blood gas; pH 7.44, CO2 of 28, pO2 of 74. . He will not wean per protocol tonight. We will continue to follow with the other physicians. TIME SPENT: This is a 70-minute consult, 50% of the time spent on the unit coordinating care. Job ID: [id number]
[2019-10-27] MEDS: Sodium Chloride 0.9% 1,000 ML IV SCH (04:40)
[2019-10-27 04:43] LABS: #Lymphocytes 1.4 thou/uL (1.20-3.40); #Monocytes 1.2 thou/uL (0.11-0.59); #Neutrophils 14.8 thou/uL (1.40-6.50); %Basophils 0.2 % (0.0-1.0); %Eosinophils 0.2 % (0.0-10.0); %Monocytes 7.1 % (0.0-10.0); %Neutrophils 84.5 % (42.0-75.0); Hemoglobin 13.4 g/dL (14.0-18.0); Mean Corpuscular HGB CONC 31.7 g/dL (32.0-36.0); Mean Corpuscular Hemoglobin 29.8 pg (27.0-31.0); Mean Platelet Volume 9.4 fL (7.4-10.4); Platelet Count 165 thou/uL (130-400); RBC Distribution Width 13.2 % (11.5-14.5); Red Blood Cell (RBC) Count 4.49 mill/uL (4.70-6.10); White Blood Cell (WBC) Count 17.5 thou/uL (4.8-10.8)
[2019-10-27 06:41] LABS: Anion Gap 15 mmol/L (10-20); BUN (Urea Nitrogen) 18 mg/dL (8.4-25.7); Calc. Creatinine Clearance 93 mL/min (70-130); Calcium 7.6 mg/dL (7.8-10.44); Carbon Dioxide 17 mmol/L (22-29); Chloride 113 mmol/L (98-107); Estimated GFR-MDRD 59; Glucose 123 mg/dL (70-105); Potassium 4.3 mmol/L (3.5-5.1); Sodium 141 mmol/L (136-145)
[2019-10-27 07:06] LABS: Actual Bicarbonate (HCO3a) 16.6 mEq/L (22-28); Base Excess (BEa) -5.2 mEq/L (-2.0 to +3.0); Calcium, Ionized 1.06 mmol/L (1.12-1.30); Carboxyhemoglobin (COHb) 0.6 gm% (0.0-3.0); Hemoglobin (Hb) 13.4 g/dL (14.0-18.0); O2 Tension (PaO2), arterial 130.1 mmHg (> 80.0); pH, Arterial 7.47 (7.35-7.45)
[2019-10-27 07:17] LABS: CO2 Tension 23.4 mmHg (35.0-45.0); Puncture Site ALINE
--- NOTE | 2019-10-27 08:58 | RAD ---
CHEST 1 VIEW: Date: 10/27/2019 HISTORY: Follow-up postop open heart. COMPARISON: 10/26/2019. FINDINGS: Endotracheal tube and left subclavian catheter and chest tubes remain in place. No pneumothorax. Mini mal pleural and parenchymal changes in the left base and right infrahilar region. IMPRESSION: Overall stable exam. No significant new process. No pneumothorax. POS: [facility]
[2019-10-27] MEDS: Famotidine/PF 20 mg/2ml Vial SLOW IVP SCH ×2 (09:55→20:38)
--- NOTE | 2019-10-27 10:55 | PDOC.HOSPP ---
- Subjective Encounter Date: 10/27/19 Encounter Time: 10:53 Subjective: Mr. Cruz was seen today in follow-up of CAD post CABG. He is intubated, he is wake and alert. He appears comfortable. - Objective Vital Signs & Weight: Vital Signs (12 hours) Pulse Resp BP Pulse Ox 10/27/19 10:40 88 110/70 10/27/19 08:00 15 99 10/27/19 07:08 91 109/75 10/27/19 06:00 12 10/27/19 04:00 14 10/27/19 03:11 86 101/81 10/27/19 02:00 12 10/27/19 00:38 87 101/81 10/27/19 00:00 12 Weight Weight 229 lb 15.074 oz Most Recent Monitor Data Heart Rate from ECG 95 NIBP 102/72 NIBP BP-Mean 82 Respiration from ECG 18 SpO2 99 I&O: 10/26/19 10/27/19 10/28/19 06:59 06:59 06:59 Intake Total 2044 1471 500 Output Total 2600 1935 80 Balance -556 -464 420 Result Diagrams: 10/27/19 04:20 10/27/19 04:20 Additional Labs: Accuchecks 10/27/19 10/27/19 10/27/19 07:48 04:32 00:24 POC Glucose 119 H 118 H 117 H 10/26/19 10/26/19 10/26/19 20:40 15:46 15:00 POC Glucose 121 H 135 H 145 H 10/26/19 10/26/19 10/26/19 14:05 13:06 12:36 POC Glucose 173 H 158 H 136 H 10/26/19 10/26/19 12:06 11:26 POC Glucose 147 H 156 H Hospitalist ROS - Medication Medications: Active Medications Generic Name Dose Route Start Last Admin Trade Name Freq PRN Reason Stop Dose Admin Albumin Human 25 gm 10/26/19 14:03 10/27/19 07:09 Albumin 5% IVPB 10/27/19 14:04 25 gm Q6H PRN Administration To Maintain SBP > 90 mmHG Famotidine 20 mg 10/26/19 21:00 10/27/19 09:55 Pepcid SLOW IVP 20 mg Q12HR LAVERNE Administration Norepinephrine Bitartrate 250 mls @ 0 mls/hr 10/26/19 14:03 10/26/19 20:11 Levophed IVPB 250 mls PRN PRN Administration To maintain SBP > 90 mmHG Protocol Titrate Sodium Chloride 1,000 mls @ 75 mls/hr 10/26/19 14:03 10/27/19 04:40 Normal Saline 0.9% IV 1,000 mls .[id number] LAVERNE Administration Fentanyl Citrate 2,000 mcg/ 100 mls @ 0 mls/hr 10/26/19 19:46 10/26/19 20:10 Sodium Chloride IV 11/25/19 19:46 100 mls INF LAVERNE Administration Protocol Per Protocol Insulin Human Regular 0 units 10/26/19 14:16 10/26/19 21:24 Humulin R SC 2 unit Q4H PRN Administration POST CABG SLIDING SCALE Protocol Potassium Chloride 20 meq 10/26/19 14:03 10/26/19 18:14 Kcl IVPB 20 meq PRN PRN Administration K level </= 4.0 Sodium Chloride 10 ml 10/26/19 14:03 10/27/19 09:55 Flush - Normal Saline IVF 10 ml Q12HR LAVERNE Administration - Exam Eye: PERRL, anicteric sclera Heart: RRR, no murmur, no gallops, no rubs, normal peripheral pulses Respiratory: no ronchi (+ coarse breath sounds bilaterally, and) Gastrointestinal: soft, non-tender, non-distended, normal bowel sounds Extremities: no cyanosis (+ palpable pulses bilaterally), no edema Hosp A/P (1) CAD (coronary artery disease) Code(s): I25.10 - ATHSCL HEART DISEASE OF [place] CORONARY ARTERY W/O ANG PCTRS Status: Acute (2) S/P CABG x 4 Status: Acute (3) BRADLY (acute kidney injury) Code(s): N17.9 - ACUTE KIDNEY FAILURE, UNSPECIFIED Status: Acute (4) Acute exacerbation of CHF (congestive heart failure) Code(s): I50.9 - HEART FAILURE, UNSPECIFIED Status: Acute (5) HTN (hypertension) Code(s): I10 - ESSENTIAL (PRIMARY) HYPERTENSION Status: Chronic (6) MEHNAZ (obstructive sleep apnea) Code(s): G47.33 - OBSTRUCTIVE SLEEP APNEA (ADULT) (PEDIATRIC) Status: Chronic - Plan * CAD- s/p CABG- he is currently intubated, and has aortic balloon pump in place * His Blood pressure is stable * Acute systolic heart failure- stable * Blood glucose is stable * Acute on chronic kidney injury- stable Chronic kidney disease stage 2
--- NOTE | 2019-10-27 11:07 | PRG ---
DATE OF SERVICE: 10/27/2019 SUBJECTIVE: María Cruz remains mechanically ventilated. Balloon pump still in. Hemodynamics are stable. OBJECTIVE: VITAL SIGNS: Blood pressure 109/73, heart rate 88, respiratory rate 16. LUNGS: Clear. HEART: Regular rhythm. ABDOMEN: Soft. EXTREMITIES: Without asymmetry. Intake and outputs -464. Left chest tube had 500 mL out. Mediastinal tubes had 330 out. [place] was 1105 out. LABORATORY DATA: White count 17.5, hemoglobin 13.4, platelets 165. Sodium 141, potassium 4.3, chloride 113, bicarb 17, BUN 18, creatinine 1.24. IMPRESSION: Status post coronary artery bypass grafting, requiring balloon pump counterpulsation, clinically stabilizing. Continue ventilatory support. Consider weaning tomorrow if he has a good day and a good night if balloon pump comes out today. CRITICAL CARE TIME: 30 minutes. Job ID: [id number]
--- NOTE | 2019-10-27 12:20 | PDOC.CPN ---
- Subjective Date: 10/27/19 Time: 12:19 - Objective Allergies/Adverse Reactions: Allergies Allergy/AdvReac Type Severity Reaction Status Date / Time No Known Allergies Allergy Verified 10/23/19 17:09 Visit Medications: Current Medications Acetaminophen (Tylenol) 650 mg PO Q6H PRN PRN Reason: Headache/Fever Or Mild Pain Al Hydroxide/Mg Hydroxide (Maalox) 30 ml PO Q4H PRN PRN Reason: Indigestion Albumin Human (Albumin 5%) 12.5 gm IVPB Q6H PRN PRN Reason: To Maintain SBP> 90 mmHG Stop: 10/27/19 14:04 Albumin Human (Albumin 5%) 25 gm IVPB Q6H PRN PRN Reason: To Maintain SBP > 90 mmHG Stop: 10/27/19 14:04 Last Admin: 10/27/19 07:09 Dose: 25 gm Albuterol/Ipratropium (Duoneb) 3 ml NEB Q8GE-CG PRN PRN Reason: SHORTNESS OF BREATH Aspirin (Aspirin) 325 mg PO DAILY [facility] Bisacodyl (Dulcolax) 10 mg PO Q12H PRN PRN Reason: Constipation Bisacodyl (Dulcolax) 10 mg MA Q12H PRN PRN Reason: Constipation Dextrose/Water (Dextrose 50%) 25 gm SLOW IVP PRN PRN PRN Reason: PER HYPOGLYCEMIC PROTOCOL Famotidine (Pepcid) 20 mg SLOW IVP Q12HR [facility] Last Admin: 10/27/19 09:55 Dose: 20 mg Glucagon (Glucagon) 1 mg SC PRN PRN PRN Reason: PER HYPOGLYCEMIC PROTOCOL Guaifenesin/Dextromethorphan (Robitussin Dm) 15 ml PO Q4H PRN PRN Reason: Cough Hydralazine HCl (Apresoline) 10 mg SLOW IVP Q6H PRN PRN Reason: To Maintain SBP< 140mmHG Norepinephrine Bitartrate (Levophed) 250 mls @ 0 mls/hr IVPB PRN PRN; Protocol PRN Reason: To maintain SBP > 90 mmHG Last Admin: 10/26/19 20:11 Dose: 250 mls Nicardipine HCl 25 mg/ Sodium (Chloride) 260 mls @ 0 mls/hr IVPB INF PRN; Protocol PRN Reason: To Maintain SBP< 140mmHG Nitroglycerin/Dextrose (Nitroglycerin 50 Mg/250 Ml Bot) 250 mls @ 0 mls/hr IVPB PRN PRN; Protocol PRN Reason: To Maintain SBP< 140mmHG Sodium Chloride (Normal Saline 0.9%) 1,000 mls @ 75 mls/hr IV [id number] [facility] Last Admin: 10/27/19 04:40 Dose: 1,000 mls Insulin Human Regular 100 (units/ Sodium Chloride) 101 mls @ 0 mls/hr IVPB INF [facility]; Protocol Dextrose/Water (D5w) 1,000 mls @ 0 mls/hr IV INF PRN PRN Reason: PRN HYPOGLYCEMIC PROTOCOL Fentanyl Citrate 2,000 mcg/ (Sodium Chloride) 100 mls @ 0 mls/hr IV INF [facility]; Protocol Stop: 11/25/19 19:46 Last Admin: 10/26/19 20:10 Dose: 100 mls Fentanyl Citrate (Fentanyl Bolus) 250 mls @ 0 mls/hr IVPB PRN PRN PRN Reason: Breakthrough pain/agitation Stop: 11/25/19 19:46 Insulin Glargine (Lantus) 0 units SC ONE PRN PRN Reason: POST OPEN HEART ORDERS Stop: 10/27/19 17:00 Insulin Human Regular (Humulin R) 0 units SC Q4H PRN; Protocol PRN Reason: POST CABG SLIDING SCALE Last Admin: 10/26/19 21:24 Dose: 2 unit Lorazepam (Ativan) 2 mg SLOW IVP Q1H PRN PRN Reason: Breakthrough agitation Stop: 11/25/19 19:46 Morphine Sulfate (Morphine) 2 mg SLOW IVP Q1H PRN PRN Reason: BREAKTHROUGH PAIN/Agitation Stop: 11/25/19 19:46 Discontinue Previous Narcotic Pain Medications And Benzodiazepines 1 each FS .ONE [facility] Stop: 11/25/19 19:46 Ondansetron HCl (Zofran) 4 mg IVP Q6H PRN PRN Reason: Nausea/Vomiting Potassium Chloride (Kcl) 20 meq IVPB PRN PRN PRN Reason: K level </= 4.0 Last Admin: 10/26/19 18:14 Dose: 20 meq Promethazine HCl (Phenergan) 6.25 mg IM Q4H PRN PRN Reason: Nausea/Vomiting Propofol (Diprivan) 1,000 mg IV INF PRN; Protocol PRN Reason: TO ACHIEVE GOAL RASS Stop: 11/25/19 19:46 Propofol (Diprivan Bolus) 20 mg IV Q5MIN PRN PRN Reason: BREAKTHROUGH AGITATION Stop: 11/25/19 19:46 Sodium Chloride (Flush - Normal Saline) 10 ml IVF Q12HR [facility] Last Admin: 10/27/19 09:55 Dose: 10 ml Vital Signs & Weight: Vital Signs Pulse Resp BP Pulse Ox 10/27/19 10:40 88 110/70 10/27/19 08:00 15 99 10/27/19 07:08 91 109/75 10/27/19 06:00 12 10/27/19 04:00 14 10/27/19 03:11 86 101/81 10/27/19 02:00 12 10/27/19 00:38 87 101/81 Weight 229 lb 15.074 oz - Labs Result Diagrams: 10/27/19 04:20 10/27/19 04:20 Troponin/CKMB Troponin I 0.030 ng/mL (< 0.028) H 10/23/19 21:05 - Assessment/Plan Assessment/Plan: Severe CAD s/p CABG Ischemic CM
[2019-10-27] MEDS: Insulin Regular 300 UNITS/3 ML VIAL SC PRN (12:56)
[2019-10-27] MEDS: Norepinephrine 8 MG/0.9% NS 250 ML IVPB PRN (15:14)
[2019-10-27] MEDS ORDERED: Sodium Chloride 0.9% 1,000 ML IV SCH (16:45)
[2019-10-27] MEDS: Aspirin 325 MG TAB PO SCH (17:35)
--- NOTE | 2019-10-27 20:24 | OP ---
DATE OF PROCEDURE: 10/27/2019 PREOPERATIVE DIAGNOSIS: For removal of intra-aortic balloon pump. POSTOPERATIVE DIAGNOSIS: For removal of intra-aortic balloon pump. PROCEDURE PERFORMED: Removal of percutaneously placed balloon pump. DESCRIPTION OF PROCEDURE: The patient was placed supine in the bed. The dressings and sutures were all removed. Balloon pump was placed on standby. While holding manual pressure on the insertion site, the balloon pump was removed. Antegrade and retrograde bleed were performed. Manual pressure was held for 10 minutes followed by FemoStop for an hour. The patient tolerated the procedure well. Job ID: [id number]
[2019-10-28 03:51] LABS: #Basophils 0.1 thou/uL (0.0-0.2); #Eosinphils 0.1 thou/uL (0.0-0.7); #Lymphocytes 1.6 thou/uL (1.20-3.40); #Monocytes 2.3 thou/uL (0.11-0.59); #Neutrophils 15.1 thou/uL (1.40-6.50); %Basophils 0.4 % (0.0-1.0); %Eosinophils 0.4 % (0.0-10.0); %Lymphocytes 8.5 % (21.0-51.0); %Monocytes 12.1 % (0.0-10.0); %Neutrophils 78.5 % (42.0-75.0); Hemoglobin 12.4 g/dL (14.0-18.0); Mean Corpuscular HGB CONC 32.1 g/dL (32.0-36.0); Mean Corpuscular Hemoglobin 30.9 pg (27.0-31.0); Mean Corpuscular Volume 96.5 fL (78.0-98.0); Mean Platelet Volume 9.2 fL (7.4-10.4); Platelet Count 133 thou/uL (130-400); RBC Distribution Width 13.3 % (11.5-14.5); Red Blood Cell (RBC) Count 4.02 mill/uL (4.70-6.10); White Blood Cell (WBC) Count 19.2 thou/uL (4.8-10.8)
[2019-10-28 04:09] LABS: Anion Gap 13 mmol/L (10-20); BUN (Urea Nitrogen) 19 mg/dL (8.4-25.7); Calc. Creatinine Clearance 105 mL/min (70-130); Calcium 8.2 mg/dL (7.8-10.44); Carbon Dioxide 22 mmol/L (22-29); Chloride 113 mmol/L (98-107); Estimated GFR-MDRD 68; Glucose 110 mg/dL (70-105); Magnesium 2.2 mg/dL (1.6-2.6); Potassium 4.4 mmol/L (3.5-5.1); Sodium 144 mmol/L (136-145)
--- NOTE | 2019-10-28 07:14 | PDOC.CPN ---
- Subjective Date: 10/28/19 Time: 07:14 Interval history: Doing well today IABP removed No complaints - Objective Allergies/Adverse Reactions: Allergies Allergy/AdvReac Type Severity Reaction Status Date / Time No Known Allergies Allergy Verified 10/23/19 17:09 Visit Medications: Current Medications Acetaminophen (Tylenol) 650 mg PO Q6H PRN PRN Reason: Headache/Fever Or Mild Pain Al Hydroxide/Mg Hydroxide (Maalox) 30 ml PO Q4H PRN PRN Reason: Indigestion Albuterol/Ipratropium (Duoneb) 3 ml NEB [id number] PRN PRN Reason: SHORTNESS OF BREATH Aspirin (Aspirin) 325 mg PO DAILY [facility] Last Admin: 10/27/19 17:35 Dose: 325 mg Bisacodyl (Dulcolax) 10 mg PO Q12H PRN PRN Reason: Constipation Bisacodyl (Dulcolax) 10 mg [place] Q12H PRN PRN Reason: Constipation Dextrose/Water (Dextrose 50%) 25 gm SLOW IVP PRN PRN PRN Reason: PER HYPOGLYCEMIC PROTOCOL Famotidine (Pepcid) 20 mg SLOW IVP Q12HR [facility] Last Admin: 10/27/19 20:38 Dose: 20 mg Glucagon (Glucagon) 1 mg SC PRN PRN PRN Reason: PER HYPOGLYCEMIC PROTOCOL Guaifenesin/Dextromethorphan (Robitussin Dm) 15 ml PO Q4H PRN PRN Reason: Cough Hydralazine HCl (Apresoline) 10 mg SLOW IVP Q6H PRN PRN Reason: To Maintain SBP< 140mmHG Norepinephrine Bitartrate (Levophed) 250 mls @ 0 mls/hr IVPB PRN PRN; Protocol PRN Reason: To maintain SBP > 90 mmHG Last Admin: 10/27/19 15:14 Dose: 250 mls Nicardipine HCl 25 mg/ Sodium (Chloride) 260 mls @ 0 mls/hr IVPB INF PRN; Protocol PRN Reason: To Maintain SBP< 140mmHG Nitroglycerin/Dextrose (Nitroglycerin 50 Mg/250 Ml Bot) 250 mls @ 0 mls/hr IVPB PRN PRN; Protocol PRN Reason: To Maintain SBP< 140mmHG Insulin Human Regular 100 (units/ Sodium Chloride) 101 mls @ 0 mls/hr IVPB INF [facility]; Protocol Dextrose/Water (D5w) 1,000 mls @ 0 mls/hr IV INF PRN PRN Reason: PRN HYPOGLYCEMIC PROTOCOL Fentanyl Citrate 2,000 mcg/ (Sodium Chloride) 100 mls @ 0 mls/hr IV INF [facility]; Protocol Stop: 11/25/19 19:46 Last Admin: 10/26/19 20:10 Dose: 100 mls Fentanyl Citrate (Fentanyl Bolus) 250 mls @ 0 mls/hr IVPB PRN PRN PRN Reason: Breakthrough pain/agitation Stop: 11/25/19 19:46 Sodium Chloride (Normal Saline 0.9%) 1,000 mls @ 40 mls/hr IV .Q24H [facility] Last Admin: 10/27/19 17:36 Dose: 1,000 mls Insulin Human Regular (Humulin R) 0 units SC Q4H PRN; Protocol PRN Reason: POST CABG SLIDING SCALE Last Admin: 10/27/19 12:56 Dose: 2 unit Lorazepam (Ativan) 2 mg SLOW IVP Q1H PRN PRN Reason: Breakthrough agitation Stop: 11/25/19 19:46 Morphine Sulfate (Morphine) 2 mg SLOW IVP Q1H PRN PRN Reason: BREAKTHROUGH PAIN/Agitation Stop: 11/25/19 19:46 Discontinue Previous Narcotic Pain Medications And Benzodiazepines 1 each FS .ONE [facility] Stop: 11/25/19 19:46 Ondansetron HCl (Zofran) 4 mg IVP Q6H PRN PRN Reason: Nausea/Vomiting Potassium Chloride (Kcl) 20 meq IVPB PRN PRN PRN Reason: K level </= 4.0 Last Admin: 10/26/19 18:14 Dose: 20 meq Promethazine HCl (Phenergan) 6.25 mg IM Q4H PRN PRN Reason: Nausea/Vomiting Propofol (Diprivan) 1,000 mg IV INF PRN; Protocol PRN Reason: TO ACHIEVE GOAL RASS Stop: 11/25/19 19:46 Propofol (Diprivan Bolus) 20 mg IV Q5MIN PRN PRN Reason: BREAKTHROUGH AGITATION Stop: 11/25/19 19:46 Sodium Chloride (Flush - Normal Saline) 10 ml IVF Q12HR [facility] Last Admin: 10/27/19 20:38 Dose: 10 ml Vital Signs & Weight: Vital Signs Pulse Resp BP Pulse Ox 10/28/19 06:00 14 05/24/20 04:00 14 10/28/19 03:34 103 H 10/28/19 02:00 13 10/28/19 00:00 16 10/27/19 22:50 95 102/74 10/27/19 22:00 15 10/27/19 20:00 15 10/27/19 19:30 100 Admit Weight 229 lb Weight 227 lb 8.273 oz - Physical Exam General: alert & oriented x3 Neck: no masses, no bruit Cardiac: regular rate, regular rhythm Lungs: normal exam, no wheezes - Labs Result Diagrams: 10/28/19 03:40 10/28/19 03:40 Troponin/CKMB Troponin I 0.030 ng/mL (< 0.028) H 10/23/19 21:05 - Assessment/Plan Assessment/Plan: Severe CAD s/p CABG Ischemic CM Doing well overall BP stable Add low dose BB short acting Statin and ASA use
[2019-10-28 07:43] LABS: Actual Bicarbonate (HCO3a) 18.7 mEq/L (22-28); Base Excess (BEa) -4.4 mEq/L (-2.0 to +3.0); Calcium, Ionized 1.16 mmol/L (1.12-1.30); Carboxyhemoglobin (COHb) 0.8 gm% (0.0-3.0); Hemoglobin (Hb) 13.2 g/dL (14.0-18.0); O2 Tension (PaO2), arterial 127.9 mmHg (> 80.0); pH, Arterial 7.43 (7.35-7.45)
[2019-10-28 07:50] LABS: Puncture Site ALINE
[2019-10-28] MEDS ORDERED: HYDROcodone/Acetaminophen 5/325 mg Tablet PO PRN (08:04)
--- NOTE | 2019-10-28 08:20 | RAD ---
CHEST ONE VIEW: HISTORY: Follow up postop open heart. FINDINGS: NG tube, endotracheal tube and left subclavian catheter and chest tube are in place. There is minimal cardiomegaly. There is some improved aeration in the mid and lower lung zones with only minimal pers istent linear and parenchymal changes, probably some partial atelectasis Continue short-term followup. IMPRESSION: Improving aeration in the lung bases. No new process. POS: [facility]
[2019-10-28] MEDS ORDERED: Furosemide 40 MG/4 ML VIAL SLOW IVP SCH (10:00)
[2019-10-28] MEDS ORDERED: Fentanyl 100 MCG/2 ML VIAL SLOW IVP PRN ×2 (10:02)
[2019-10-28] MEDS ORDERED: Fentanyl 100 MCG/2 ML VIAL ONE (10:03)
[2019-10-28] MEDS ORDERED: HumaLOG 300 UNITS/3 ML VIAL SC PRN (10:05)
[2019-10-28] MEDS: Famotidine/PF 20 mg/2ml Vial SLOW IVP SCH (10:06)
[2019-10-28] MEDS ORDERED: Carvedilol 3.125 MG TAB PO SCH (10:45)
--- NOTE | 2019-10-28 11:13 | PDOC.HOSPP ---
- Subjective Encounter Date: 10/28/19 Encounter Time: 11:11 Subjective: Mr. Cruz was seen today in follow-up of CAD post CABG. He notes a bit of soreness in his chest, but otherwise ok. - Objective Vital Signs & Weight: Vital Signs (12 hours) Pulse Resp Pulse Ox 10/28/19 08:00 97 10/28/19 07:45 84 15 99 10/28/19 06:00 14 10/28/19 04:00 14 10/28/19 03:34 103 H 10/28/19 02:00 13 10/28/19 00:00 16 Weight Admit Weight 229 lb Weight 227 lb 8.273 oz Most Recent Monitor Data Heart Rate from ECG 116 NIBP 122/92 NIBP BP-Mean 102 Respiration from ECG 28 SpO2 99 I&O: 10/27/19 10/28/19 10/29/19 06:59 06:59 06:59 Intake Total 1471 2282.6 50 Output Total 1935 1345 140 Balance -464 937.6 -90 Result Diagrams: 10/28/19 03:40 10/28/19 03:40 Additional Labs: Accuchecks 10/27/19 10/27/19 16:07 12:05 POC Glucose 126 H 127 H Hospitalist ROS - Medication Medications: Active Medications Generic Name Dose Route Start Last Admin Trade Name Freq PRN Reason Stop Dose Admin Aspirin 325 mg 10/27/19 09:00 10/27/19 17:35 Aspirin PO 325 mg DAILY [facility] Administration Carvedilol 3.125 mg 10/28/19 10:45 10/28/19 11:01 Coreg PO 10/28/19 12:45 3.125 mg NOW [facility] Administration Furosemide 40 mg 10/28/19 10:00 10/28/19 11:01 Lasix SLOW IVP 10/28/19 12:00 40 mg NOW [facility] Administration Insulin Human Regular 0 units 10/26/19 14:16 10/27/19 12:56 Humulin R SC 2 unit Q4H PRN Administration POST CABG SLIDING SCALE Protocol Potassium Chloride 20 meq 10/26/19 14:03 10/26/19 18:14 Kcl IVPB 20 meq PRN PRN Administration K level </= 4.0 Sodium Chloride 10 ml 10/26/19 14:03 10/28/19 10:07 Flush - Normal Saline IVF 10 ml Q12HR [facility] Administration - Exam Eye: PERRL, anicteric sclera Heart: RRR, no murmur, no gallops, no rubs, normal peripheral pulses Respiratory: CTAB (with the exception of occasional rales and decreased breath sounds at the bases.) Gastrointestinal: soft, non-tender, non-distended, normal bowel sounds, no palpable masses Extremities: no cyanosis, 1+ LE edema (trace pedal edema) Hosp A/P (1) CAD (coronary artery disease) Code(s): I25.10 - ATHSCL HEART DISEASE OF [place] CORONARY ARTERY W/O ANG PCTRS Status: Acute (2) S/P CABG x 4 Status: Acute (3) BRADLY (acute kidney injury) Code(s): N17.9 - ACUTE KIDNEY FAILURE, UNSPECIFIED Status: Acute (4) Acute exacerbation of CHF (congestive heart failure) Code(s): I50.9 - HEART FAILURE, UNSPECIFIED Status: Acute (5) HTN (hypertension) Code(s): I10 - ESSENTIAL (PRIMARY) HYPERTENSION Status: Chronic (6) MEHNAZ (obstructive sleep apnea) Code(s): G47.33 - OBSTRUCTIVE SLEEP APNEA (ADULT) (PEDIATRIC) Status: Chronic - Plan * CAD- s/p CABG- he is currently intubated, the balloon pump has been removed * His Blood pressure is stable off pump * Acute systolic heart failure- stable * Blood glucose is stable * Acute on chronic kidney injury- stable Chronic kidney disease stage 2
[2019-10-28] MEDS: HYDROcodone/Acetaminophen 5/325 mg Tablet PO PRN (12:09)
[2019-10-28] MEDS: Aspirin 325 MG TAB PO SCH (12:09)
--- NOTE | 2019-10-28 13:46 | PRG ---
DATE OF SERVICE: 10/28/2019 SUBJECTIVE: María Cruz had his balloon pump removed. He successfully weaned from mechanical ventilation protocol this morning. OBJECTIVE: VITAL SIGNS: Heart rates 114, blood pressure 127/87, saturations in the 90s on room air. LUNGS: Clear. HEART: Regular rhythm. ABDOMEN: Soft. Still has chest tubes in. LABORATORY DATA: White count 19.2, hemoglobin 12.4, platelets 133. Electrolytes are unremarkable. IMPRESSION: Status post coronary artery bypass grafting requiring a balloon pump, clinically doing better than I expected. We will continue to follow. Job ID: [id number]
[2019-10-28] MEDS: Carvedilol 3.125 MG TAB PO SCH (21:42)
[2019-10-29 04:13] LABS: #Basophils 0.1 thou/uL (0.0-0.2); #Eosinphils 0.5 thou/uL (0.0-0.7); #Lymphocytes 2.3 thou/uL (1.20-3.40); #Monocytes 1.9 thou/uL (0.11-0.59); #Neutrophils 11.8 thou/uL (1.40-6.50); %Basophils 0.4 % (0.0-1.0); %Eosinophils 3.1 % (0.0-10.0); %Lymphocytes 13.8 % (21.0-51.0); %Monocytes 11.4 % (0.0-10.0); %Neutrophils 71.4 % (42.0-75.0); Hemoglobin 11.3 g/dL (14.0-18.0); Mean Corpuscular HGB CONC 32.3 g/dL (32.0-36.0); Mean Corpuscular Hemoglobin 30.9 pg (27.0-31.0); Mean Corpuscular Volume 95.8 fL (78.0-98.0); Mean Platelet Volume 9.8 fL (7.4-10.4); Platelet Count 130 thou/uL (130-400); RBC Distribution Width 13.1 % (11.5-14.5); Red Blood Cell (RBC) Count 3.66 mill/uL (4.70-6.10); White Blood Cell (WBC) Count 16.6 thou/uL (4.8-10.8)
[2019-10-29 04:16] LABS: Anion Gap 12 mmol/L (10-20); BUN (Urea Nitrogen) 24 mg/dL (8.4-25.7); Calc. Creatinine Clearance 105 mL/min (70-130); Calcium 8.1 mg/dL (7.8-10.44); Carbon Dioxide 26 mmol/L (22-29); Chloride 107 mmol/L (98-107); Estimated GFR-MDRD 69; Glucose 101 mg/dL (70-105); Magnesium 2.2 mg/dL (1.6-2.6); Potassium 3.6 mmol/L (3.5-5.1); Sodium 141 mmol/L (136-145)
[2019-10-29] MEDS: Potassium Chloride 20 MEQ/100 ML PREMIX BAG IVPB PRN (05:00)
[2019-10-29] MEDS ORDERED: Mineral Oil ENEMA PR PRN (08:06)
[2019-10-29] MEDS ORDERED: Mag-Al 1200 mg/1200 mg/30 ML UDCUP PO PRN (08:06)
[2019-10-29] MEDS ORDERED: Artificial Tears 18 DROP/0.9 ML EA EYE PRN (08:06)
[2019-10-29] MEDS ORDERED: Bisacodyl 5 MG TAB PO PRN (08:06)
[2019-10-29] MEDS ORDERED: Guaifenesin DM 100-10/5 ML UDCUP PO PRN (08:06)
[2019-10-29] MEDS ORDERED: Bisacodyl 10 MG SUPP PR PRN (08:06)
[2019-10-29] MEDS ORDERED: diphenhydrAMINE 25 MG CAP PO PRN (08:06)
[2019-10-29] MEDS ORDERED: Zolpidem Tartrate 5 MG TAB PO PRN (08:06)
[2019-10-29] MEDS ORDERED: Nitroglycerin 0.4 MG TAB (25 Tab Bottle) SL PRN (08:06)
[2019-10-29] MEDS: Carvedilol 3.125 MG TAB PO SCH ×2 (08:34→16:14)
[2019-10-29] MEDS: Aspirin 325 mg Enteric Coated Tablet PO SCH (08:34)
[2019-10-29] MEDS: Furosemide 40 MG TAB PO SCH (08:35)
--- NOTE | 2019-10-29 10:33 | RAD ---
CHEST 1 VIEW: HISTORY: Followup postop open heart. COMPARISON: 10/28/2019. FINDINGS/IMPRESSION: Removal of the NG Tube and endotracheal tube. Postop midline sternotomy. Left subclavian catheter. Minimal cardiomegaly. Minimal stable postoperative pleural and parenchymal changes in the left base . Continue short-term followup. POS: [facility]
[2019-10-29] MEDS: Potassium Chloride 10 MEQ TAB PO SCH (11:30)
--- NOTE | 2019-10-29 12:50 | PRG ---
DATE OF SERVICE: 10/29/2019 SUBJECTIVE: The patient is doing well. No complaints. Wants to go home. OBJECTIVE: VITAL SIGNS: Temperature 98.4, pulse 109, respirations 20, O2 saturations 97% room air, and blood pressure 108/68. HEENT: Unremarkable. NECK: No JVD. CHEST: Mid sternotomy scar, well healed. CARDIAC: S1 and S2. Regular. ABDOMEN: Soft. EXTREMITIES: No edema. LABORATORY DATA: White blood cell count 16, hematocrit 35, and platelet count 130. Sodium 141, BUN 24, creatinine 1.1, and glucose 101. ASSESSMENT: Status post coronary artery bypass grafting surgery with stable respiratory status. PLAN: Continue incentive spirometry. Hopefully home soon. Job ID: [id number]
--- NOTE | 2019-10-29 14:19 | PDOC.HOSPP ---
- Subjective Encounter Date: 10/29/19 Encounter Time: 14:16 Subjective: Mr. Cruz was seen today in follow-up of CAD, post CABG. He says he feels fine. He denies chest pain or soreness, no trouble breathing. - Objective Vital Signs & Weight: Vital Signs (12 hours) Temp Pulse Pulse Pulse Resp BP BP 10/29/19 12:00 110 H 98 108/68 108/68 10/29/19 11:38 98.4 F 109 H 20 10/29/19 09:30 122 H 106 H 107/69 105/70 10/29/19 07:49 97.7 F 112 H 20 10/29/19 03:40 10/29/19 03:00 98.1 F BP BP Pulse Ox Pulse Ox Pulse Ox 10/29/19 12:00 99 97 10/29/19 11:38 102/70 97 10/29/19 09:30 98 97 10/29/19 07:49 109/74 100 10/29/19 03:40 96 10/29/19 03:00 Weight Admit Weight 229 lb Weight 226 lb 13.69 oz Most Recent Monitor Data Heart Rate from ECG 109 NIBP 94/70 NIBP BP-Mean 78 Respiration from ECG 30 SpO2 99 I&O: 10/28/19 10/29/19 10/30/19 06:59 06:59 06:59 Intake Total 2282.6 1746 Output Total 1345 2430 650 Balance 937.6 -684 -650 Result Diagrams: 10/29/19 03:30 10/29/19 03:30 Hospitalist ROS - Medication Medications: Active Medications Generic Name Dose Route Start Last Admin Trade Name Freq PRN Reason Stop Dose Admin Hydrocodone Bitart/Acetaminophen 1 tab 10/28/19 08:03 10/28/19 12:09 [place] 5/325 PO 1 tab Q4H PRN Administration Moderate Pain (4-6) Hydrocodone Bitart/Acetaminophen 2 tab 10/28/19 08:04 10/28/19 21:31 [place] 5/325 PO 2 tab Q4H PRN Administration Severe Pain (7-10) Aspirin 325 mg 10/29/19 09:00 10/29/19 08:34 Ecotrin PO 325 mg DAILY [facility] Administration Carvedilol 3.125 mg 10/28/19 17:00 10/29/19 08:34 Coreg PO 3.125 mg BID-WM [facility] Administration Furosemide 40 mg 10/29/19 09:00 10/29/19 08:35 Lasix PO 40 mg DAILY [facility] Administration Pantoprazole Sodium 40 mg 10/29/19 09:00 10/29/19 08:35 Protonix PO 40 mg DAILY [facility] Administration Potassium Chloride 20 meq 10/26/19 14:03 10/29/19 05:00 Kcl IVPB 20 meq PRN PRN Administration K level </= 4.0 Potassium Chloride 10 meq 10/29/19 08:00 10/29/19 11:30 Klor-Con 10 PO Not Given QAM-WM [facility] Sodium Chloride 10 ml 10/26/19 14:03 10/29/19 08:36 Flush - Normal Saline IVF 10 ml Q12HR [facility] Administration - Exam Eye: PERRL Heart: RRR, no murmur, no gallops, no rubs Respiratory: CTAB (with decreased breath sounds at the bases), no wheezes, no rales, no ronchi Gastrointestinal: soft, non-tender, non-distended, normal bowel sounds, no palpable masses Extremities: no cyanosis, no clubbing, 1+ LE edema Hosp A/P (1) CAD (coronary artery disease) Code(s): I25.10 - ATHSCL HEART DISEASE OF [place] CORONARY ARTERY W/O ANG PCTRS Status: Acute (2) S/P CABG x 4 Status: Acute (3) BRADLY (acute kidney injury) Code(s): N17.9 - ACUTE KIDNEY FAILURE, UNSPECIFIED Status: Acute (4) Acute exacerbation of CHF (congestive heart failure) Code(s): I50.9 - HEART FAILURE, UNSPECIFIED Status: Acute (5) HTN (hypertension) Code(s): I10 - ESSENTIAL (PRIMARY) HYPERTENSION Status: Chronic (6) MEHNAZ (obstructive sleep apnea) Code(s): G47.33 - OBSTRUCTIVE SLEEP APNEA (ADULT) (PEDIATRIC) Status: Chronic - Plan * CAD- s/p CABG- progressing well. He has been moved out of the ICU * Clinically stable- will continue Carvediolol, and add Lipitor * Acute systolic heart failure- stable * Blood glucose is stable * Acute on chronic kidney injury- stable Chronic kidney disease stage 2 * Continue Cardiac Rehab
[2019-10-29] MEDS: Atorvastatin Calcium 40 MG TAB PO SCH (20:40)
[2019-10-29] MEDS: HYDROcodone/Acetaminophen 5/325 mg Tablet PO PRN (20:41)
[2019-10-29] MEDS ORDERED: Atorvastatin Calcium 10 MG TAB PO SCH (21:00)
[2019-10-30] MEDS ORDERED: Digoxin 0.5 MG/2 ML AMP ONE (00:52)
[2019-10-30] MEDS ORDERED: Digoxin 0.5 MG/2 ML AMP SLOW IVP SCH (01:00)
[2019-10-30] MEDS ORDERED: Amiodarone 150 MG, Admixture Fee 1 EACH in Dextrose 5% in Water 100 ML IVPB SCH (01:15)
[2019-10-30 01:21] LABS: ALT (SGPT) 11 U/L (8-55); AST (SGOT) 16 U/L (5-34); Alkaline Phosphatase 47 U/L (40-110); Bilirubin, Direct 0.4 mg/dL (0.1-0.3); Bilirubin, Total 0.8 mg/dL (0.2-1.2); Protein, Total 5.2 g/dL (6.0-8.3)
[2019-10-30] MEDS ORDERED: Amiodarone 450 MG, Admixture Fee 1 EACH in Dextrose 5% in Water 250 ML IVPB SCH (01:30)
[2019-10-30] MEDS: HYDROcodone/Acetaminophen 5/325 mg Tablet PO PRN (05:27)
[2019-10-30] MEDS ORDERED: Amiodarone 200 MG TAB PO SCH (07:15)
[2019-10-30] MEDS: Potassium Chloride 10 MEQ TAB PO SCH (08:08)
[2019-10-30] MEDS: Aspirin 325 mg Enteric Coated Tablet PO SCH (08:08)
[2019-10-30] MEDS: Carvedilol 6.25 MG TAB PO SCH ×2 (08:08→16:10)
[2019-10-30] MEDS: Furosemide 40 MG TAB PO SCH (08:08)
[2019-10-30 13:18] VITALS: BMI 33.2
--- NOTE | 2019-10-30 15:42 | PDOC.HOSPP ---
- Subjective Encounter Date: 10/30/19 Encounter Time: 15:41 Subjective: Mr. Bourne was seen today in follow-up of CAD post CABG. He notes difficulty sleeping last night, and feeling " uneasy". It was found that he was in AFIB at that time. Now he feels much better. - Objective Vital Signs & Weight: Vital Signs (12 hours) Temp Pulse Pulse Pulse Resp BP BP 10/30/19 13:33 101 H 80 117/60 109/64 10/30/19 11:25 97.5 F L 94 16 10/30/19 09:24 106 H 96 120/78 109/75 10/30/19 07:18 97.8 F 98 20 BP BP Pulse Ox Pulse Ox Pulse Ox 10/30/19 13:33 98 94 L 10/30/19 11:25 101/69 95 10/30/19 09:24 98 98 10/30/19 07:18 131/82 95 Weight Admit Weight 240 lb Weight 231 lb 6.4 oz Most Recent Monitor Data Heart Rate from ECG 109 NIBP 94/70 NIBP BP-Mean 78 Respiration from ECG 30 SpO2 99 I&O: 10/29/19 10/30/19 10/31/19 06:59 06:59 06:59 Intake Total 1746 1545 Output Total 2430 1000 700 Balance -684 545 -700 Result Diagrams: 10/29/19 03:30 10/29/19 03:30 Hospitalist ROS - Medication Medications: Active Medications Generic Name Dose Route Start Last Admin Trade Name Freq PRN Reason Stop Dose Admin Hydrocodone Bitart/Acetaminophen 1 tab 10/28/19 08:03 10/30/19 05:27 [place] 5/325 PO 1 tab Q4H PRN Administration Moderate Pain (4-6) Hydrocodone Bitart/Acetaminophen 2 tab 10/28/19 08:04 10/28/19 21:31 [place] 5/325 PO 2 tab Q4H PRN Administration Severe Pain (7-10) Aspirin 325 mg 10/29/19 09:00 10/30/19 08:08 Ecotrin PO 325 mg DAILY [facility] Administration Atorvastatin Calcium 40 mg 10/29/19 21:00 10/29/19 20:40 Lipitor PO 40 mg HS [facility] Administration Carvedilol 6.25 mg 10/30/19 08:00 10/30/19 08:08 Coreg PO 6.25 mg BID-WM [facility] Administration Furosemide 40 mg 10/29/19 09:00 10/30/19 08:08 Lasix PO 40 mg DAILY [facility] Administration Pantoprazole Sodium 40 mg 10/29/19 09:00 10/30/19 08:08 Protonix PO 40 mg DAILY [facility] Administration Potassium Chloride 20 meq 10/26/19 14:03 10/29/19 05:00 Kcl IVPB 20 meq PRN PRN Administration K level </= 4.0 Potassium Chloride 10 meq 10/29/19 08:00 10/30/19 08:08 Klor-Con 10 PO 10 meq QAM-WM [facility] Administration Sodium Chloride 10 ml 10/26/19 14:03 10/30/19 08:09 Flush - Normal Saline IVF 10 ml Q12HR [facility] Administration - Exam Eye: PERRL, anicteric sclera Heart: RRR, no murmur, no gallops, no rubs, normal peripheral pulses Respiratory: CTAB (with the exception of decreased breath sounds at the bases.) Gastrointestinal: soft, non-tender, non-distended, normal bowel sounds, no palpable masses Extremities: no cyanosis (incision sites look good), 1+ LE edema Hosp A/P (1) CAD (coronary artery disease) Code(s): I25.10 - ATHSCL HEART DISEASE OF [place] CORONARY ARTERY W/O ANG PCTRS Status: Acute (2) S/P CABG x 4 Status: Acute (3) BRADLY (acute kidney injury) Code(s): N17.9 - ACUTE KIDNEY FAILURE, UNSPECIFIED Status: Acute (4) Acute exacerbation of CHF (congestive heart failure) Code(s): I50.9 - HEART FAILURE, UNSPECIFIED Status: Acute (5) HTN (hypertension) Code(s): I10 - ESSENTIAL (PRIMARY) HYPERTENSION Status: Chronic (6) MEHNAZ (obstructive sleep apnea) Code(s): G47.33 - OBSTRUCTIVE SLEEP APNEA (ADULT) (PEDIATRIC) Status: Chronic - Plan * CAD- s/p CABG- stable- he developed AFIB , and has been placed on Amiodarone. * Clinically stable- will continue Carvediolol and Lipitor * Acute systolic heart failure- stable * Blood glucose is stable * Acute on chronic kidney injury- stable Chronic kidney disease stage 2 * Continue Cardiac Rehab
--- NOTE | 2019-10-30 17:10 | PRG ---
DATE OF SERVICE: 10/30/2019 SUBJECTIVE: María Cruz has been ambulating in the aragon. OBJECTIVE: VITAL SIGNS: He is afebrile. Heart rate 94, respiratory rate 16, oximetry is 95 on room air, blood pressure is 117/60. LUNGS: Clear. HEART: Regular rhythm. ABDOMEN: Soft. EXTREMITIES: Without asymmetry. He apparently had atrial fibrillation overnight, was given IV amiodarone. The IV amiodarone has been discontinued. He twice today. This is fairly impressive, considering he was on a balloon pump over the weekend. IMPRESSION: 1. Ischemic cardiomyopathy, status post coronary artery bypass grafting, requiring balloon pump placement, clinically doing well at this time. 2. Perioperative atrial fibrillation. Overall, he appears to be doing well. We will sign off. Job ID: [id number]
[2019-10-30] MEDS: Amiodarone 200 MG TAB PO SCH (20:46)
[2019-10-30] MEDS: Atorvastatin Calcium 40 MG TAB PO SCH (20:46)
[2019-10-31] MEDS: HYDROcodone/Acetaminophen 5/325 mg Tablet PO PRN ×2 (00:29→23:29)
[2019-10-31] MEDS: Carvedilol 6.25 MG TAB PO SCH ×2 (08:48→16:50)
[2019-10-31] MEDS: Amiodarone 200 MG TAB PO SCH ×2 (08:49→20:04)
[2019-10-31] MEDS: Aspirin 325 mg Enteric Coated Tablet PO SCH (08:49)
[2019-10-31] MEDS: Potassium Chloride 10 MEQ TAB PO SCH (08:49)
[2019-10-31] MEDS: Lisinopril 5 MG TAB PO SCH (08:49)
[2019-10-31] MEDS: Furosemide 40 MG TAB PO SCH (08:49)
[2019-10-31 09:55] LABS: Actual Bicarbonate (HCO3a) 24.1 mEq/L (22-28); Base Excess (BEa) 0.3 mEq/L (-2.0 to +3.0); CO2 Tension 36.6 mmHg (35.0-45.0); Carboxyhemoglobin (COHb) 0.9 gm% (0.0-3.0); Hemoglobin (Hb) 14.8 g/dL (14.0-18.0); O2 Tension (PaO2), arterial 88.1 mmHg (> 80.0); pH, Arterial 7.44 (7.35-7.45)
[2019-10-31 09:56] LABS: Analyzer IN Cardio OR; Calcium, Ionized 1.01 mmol/L (1.12-1.30); Potassium - ABG Lab 4.01 mmol/L (3.70-5.30)
[2019-10-31 09:57] LABS: Actual Bicarbonate (HCO3a) 19.1 mEq/L (22-28); CO2 Tension 29.7 mmHg (35.0-45.0); Carboxyhemoglobin (COHb) 0.9 gm% (0.0-3.0); Hemoglobin (Hb) 13.9 g/dL (14.0-18.0); O2 Tension (PaO2), arterial 331.2 mmHg (> 80.0); pH, Arterial 7.43 (7.35-7.45)
[2019-10-31 09:58] LABS: Analyzer IN Cardio OR; Calcium, Ionized 1.06 mmol/L (1.12-1.30); Potassium - ABG Lab 3.77 mmol/L (3.70-5.30)
[2019-10-31 09:59] LABS: Base Excess (BEa) -4.3 mEq/L (-2.0 to +3.0); CO2 Tension 34.5 mmHg (35.0-45.0); Carboxyhemoglobin (COHb) 0.6 gm% (0.0-3.0); Hemoglobin (Hb) 14.1 g/dL (14.0-18.0); O2 Tension (PaO2), arterial 194.6 mmHg (> 80.0); pH, Arterial 7.38 (7.35-7.45)
[2019-10-31 10:00] LABS: Analyzer IN Cardio OR; Calcium, Ionized 1.04 mmol/L (1.12-1.30); Potassium - ABG Lab 3.61 mmol/L (3.70-5.30)
[2019-10-31 10:01] LABS: pH, Arterial 7.46 (7.35-7.45)
[2019-10-31 10:02] LABS: Actual Bicarbonate (HCO3a) 22.7 mEq/L (22-28); Analyzer IN Cardio OR; Base Excess (BEa) -0.5 mEq/L (-2.0 to +3.0); CO2 Tension 32.3 mmHg (35.0-45.0); Calcium, Ionized 0.94 mmol/L (1.12-1.30); Carboxyhemoglobin (COHb) 0.1 gm% (0.0-3.0); O2 Tension (PaO2), arterial 408.6 mmHg (> 80.0); Potassium - ABG Lab 4.95 mmol/L (3.70-5.30)
[2019-10-31 10:04] LABS: Actual Bicarbonate (HCO3a) 21.7 mEq/L (22-28); Base Excess (BEa) -2.7 mEq/L (-2.0 to +3.0); CO2 Tension 36.5 mmHg (35.0-45.0); Hemoglobin (Hb) 10.5 g/dL (14.0-18.0); O2 Tension (PaO2), arterial 406.6 mmHg (> 80.0); Potassium - ABG Lab 4.36 mmol/L (3.70-5.30); pH, Arterial 7.39 (7.35-7.45)
[2019-10-31 10:05] LABS: Analyzer IN Cardio OR; Calcium, Ionized 0.96 mmol/L (1.12-1.30)
[2019-10-31 10:06] LABS: Actual Bicarbonate (HCO3a) 23.8 mEq/L (22-28); Base Excess (BEa) -0.9 mEq/L (-2.0 to +3.0); CO2 Tension 39.9 mmHg (35.0-45.0); Hemoglobin (Hb) 10.1 g/dL (14.0-18.0); pH, Arterial 7.39 (7.35-7.45)
[2019-10-31 10:07] LABS: Analyzer IN Cardio OR; Carboxyhemoglobin (COHb) 0.3 gm% (0.0-3.0); Potassium - ABG Lab 4.26 mmol/L (3.70-5.30)
[2019-10-31 10:08] LABS: Base Excess (BEa) -2.6 mEq/L (-2.0 to +3.0); CO2 Tension 37.1 mmHg (35.0-45.0); Carboxyhemoglobin (COHb) 0.2 gm% (0.0-3.0); Hemoglobin (Hb) 10.6 g/dL (14.0-18.0); O2 Tension (PaO2), arterial 74.8 mmHg (> 80.0); pH, Arterial 7.39 (7.35-7.45)
[2019-10-31 10:09] LABS: Analyzer IN Cardio OR; Calcium, Ionized 1.09 mmol/L (1.12-1.30); Potassium - ABG Lab 4.05 mmol/L (3.70-5.30)
[2019-10-31 10:10] LABS: Actual Bicarbonate (HCO3a) 20.9 mEq/L (22-28); Base Excess (BEa) -3.9 mEq/L (-2.0 to +3.0); CO2 Tension 37.4 mmHg (35.0-45.0); Hemoglobin (Hb) 13.3 g/dL (14.0-18.0); O2 Tension (PaO2), arterial 110.6 mmHg (> 80.0); pH, Arterial 7.37 (7.35-7.45)
[2019-10-31 10:11] LABS: Analyzer IN Cardio OR; Calcium, Ionized 1.07 mmol/L (1.12-1.30); Carboxyhemoglobin (COHb) 0.6 gm% (0.0-3.0); Potassium - ABG Lab 3.65 mmol/L (3.70-5.30)
--- NOTE | 2019-10-31 11:39 | PDOC.HOSPP ---
- Subjective Encounter Date: 10/31/19 Encounter Time: 11:38 Subjective: Mr. Cruz was seen today in follow-up of CHF exacerbation. He notes some episodes of dyspnea, which do not seem related to position or to exertion. - Objective Vital Signs & Weight: Vital Signs (12 hours) Temp Pulse Pulse Pulse Resp BP BP 10/31/19 11:05 97.8 F 86 14 10/31/19 09:36 96 102 H 131/85 119/82 10/31/19 07:05 98.0 F 90 20 10/31/19 03:41 97.6 F 86 19 BP Pulse Ox Pulse Ox Pulse Ox 10/31/19 11:05 113/77 96 10/31/19 09:36 96 97 10/31/19 07:05 141/95 H 97 10/31/19 03:41 131/83 96 Weight Admit Weight 240 lb Weight 231 lb 4.8 oz Most Recent Monitor Data Heart Rate from ECG 109 NIBP 94/70 NIBP BP-Mean 78 Respiration from ECG 30 SpO2 99 I&O: 10/30/19 10/31/19 11/01/19 06:59 06:59 06:59 Intake Total 1545 840 Output Total 1000 1170 Balance 545 -330 Result Diagrams: 10/29/19 03:30 10/29/19 03:30 Hospitalist ROS - Medication Medications: Active Medications Generic Name Dose Route Start Last Admin Trade Name Freq PRN Reason Stop Dose Admin Hydrocodone Bitart/Acetaminophen 1 tab 10/28/19 08:03 10/31/19 00:29 [place] 5/325 PO 1 tab Q4H PRN Administration Moderate Pain (4-6) Hydrocodone Bitart/Acetaminophen 2 tab 10/28/19 08:04 10/28/19 21:31 [place] 5/325 PO 2 tab Q4H PRN Administration Severe Pain (7-10) Amiodarone HCl 400 mg 10/30/19 21:00 10/31/19 08:49 Cordarone PO 400 mg BID LAVERNE Administration Aspirin 325 mg 10/29/19 09:00 10/31/19 08:49 Ecotrin PO 325 mg DAILY LAVERNE Administration Atorvastatin Calcium 40 mg 10/29/19 21:00 10/30/19 20:46 Lipitor PO 40 mg HS LAVERNE Administration Carvedilol 6.25 mg 10/30/19 08:00 10/31/19 08:48 Coreg PO 6.25 mg BID-WM LAVERNE Administration Furosemide 40 mg 10/29/19 09:00 10/31/19 08:49 Lasix PO 40 mg DAILY LAVERNE Administration Lisinopril 5 mg 10/31/19 09:00 10/31/19 08:49 Zestril PO 5 mg DAILY LAVERNE Administration Pantoprazole Sodium 40 mg 10/29/19 09:00 10/31/19 08:49 Protonix PO 40 mg DAILY LAVERNE Administration Potassium Chloride 20 meq 10/26/19 14:03 10/29/19 05:00 Kcl IVPB 20 meq PRN PRN Administration K level </= 4.0 Potassium Chloride 10 meq 10/29/19 08:00 10/31/19 08:49 Klor-Con 10 PO 10 meq QAM-WM LAVERNE Administration Sodium Chloride 10 ml 10/26/19 14:03 10/31/19 08:49 Flush - Normal Saline IVF 10 ml Q12HR LAVERNE Administration - Exam Eye: PERRL, anicteric sclera Heart: RRR, murmur present, II/IV Respiratory: CTAB (+ ocarse breath sounds at the bases) Gastrointestinal: soft, non-tender, non-distended, normal bowel sounds, no palpable masses Extremities: no cyanosis, no edema Hosp A/P (1) CAD (coronary artery disease) Code(s): I25.10 - ATHSCL HEART DISEASE OF [place] CORONARY ARTERY W/O ANG PCTRS Status: Acute (2) S/P CABG x 4 Status: Acute (3) BRADLY (acute kidney injury) Code(s): N17.9 - ACUTE KIDNEY FAILURE, UNSPECIFIED Status: Acute (4) Acute exacerbation of CHF (congestive heart failure) Code(s): I50.9 - HEART FAILURE, UNSPECIFIED Status: Acute (5) HTN (hypertension) Code(s): I10 - ESSENTIAL (PRIMARY) HYPERTENSION Status: Chronic (6) MEHNAZ (obstructive sleep apnea) Code(s): G47.33 - OBSTRUCTIVE SLEEP APNEA (ADULT) (PEDIATRIC) Status: Chronic - Plan * CAD- s/p CABG- stable- * Post OP- AFIB - stable om Amiodarone * Clinically stable- will continue Carvediolol and Lipitor * Acute systolic heart failure- Lisinopril has been added- (patient had some coughing, but will monitor ) * Blood glucose is stable * Acute on chronic kidney injury- stable Chronic kidney disease stage 2 * Continue Cardiac Rehab * Awaiting Life Vest
[2019-10-31] MEDS: Atorvastatin Calcium 40 MG TAB PO SCH (20:04)
[2019-10-31 23:41] LABS: #Basophils 0.1 thou/uL (0.0-0.2); #Eosinphils 0.6 thou/uL (0.0-0.7); #Lymphocytes 2.2 thou/uL (1.20-3.40); #Monocytes 1.7 thou/uL (0.11-0.59); %Basophils 0.5 % (0.0-1.0); %Eosinophils 4.9 % (0.0-10.0); %Lymphocytes 17.5 % (21.0-51.0); %Monocytes 13.6 % (0.0-10.0); %Neutrophils 63.5 % (42.0-75.0); Hemoglobin 11.7 g/dL (14.0-18.0); Mean Corpuscular HGB CONC 31.9 g/dL (32.0-36.0); Mean Corpuscular Hemoglobin 29.9 pg (27.0-31.0); Mean Platelet Volume 8.9 fL (7.4-10.4); Platelet Count 243 thou/uL (130-400); White Blood Cell (WBC) Count 12.5 thou/uL (4.8-10.8)
[2019-11-01 00:02] LABS: Anion Gap 13 mmol/L (10-20); BUN (Urea Nitrogen) 20 mg/dL (8.4-25.7); Calc. Creatinine Clearance 105 mL/min (70-130); Calcium 8.4 mg/dL (7.8-10.44); Carbon Dioxide 24 mmol/L (22-29); Chloride 106 mmol/L (98-107); Estimated GFR-MDRD 68; Glucose 104 mg/dL (70-105); Magnesium 1.9 mg/dL (1.6-2.6); Phosphorus 3.2 mg/dL (2.3-4.7); Potassium 3.5 mmol/L (3.5-5.1); Sodium 139 mmol/L (136-145)
[2019-11-01 07:35] VITALS: TEMP 97.7
[2019-11-01] MEDS: Lisinopril 5 MG TAB PO SCH (07:35)
[2019-11-01] MEDS: Amiodarone 200 MG TAB PO SCH (07:36)
[2019-11-01] MEDS: Furosemide 40 MG TAB PO SCH ×2 (07:36→14:27)
[2019-11-01] MEDS: Aspirin 325 mg Enteric Coated Tablet PO SCH (07:36)
[2019-11-01] MEDS ORDERED: Potassium Chloride 20 MEQ TAB PO SCH (08:00)
[2019-11-01] MEDS ORDERED: Carvedilol 6.25 MG TAB PO SCH (08:00)
[2019-11-01 12:41] VITALS: BP 116/81
--- NOTE | 2019-11-01 12:49 | PDOC.HOSPP ---
- Subjective Encounter Date: 11/01/19 Encounter Time: 12:47 Subjective: Mr. Cruz was seen today in follow-up of CAD post CABG. He notes some dyspnea at night, otherwise ok. - Objective Vital Signs & Weight: Vital Signs (12 hours) Temp Pulse Pulse Pulse Resp BP BP 11/01/19 11:43 97.7 F 83 20 11/01/19 08:58 78 85 102/65 101/68 11/01/19 07:32 97.7 F 94 20 11/01/19 03:35 97.8 F 95 18 BP BP Pulse Ox Pulse Ox Pulse Ox 11/01/19 11:43 116/81 96 11/01/19 08:58 100 94 L 11/01/19 07:32 127/90 96 11/01/19 03:35 136/88 96 Weight Admit Weight 240 lb Weight 231 lb 14.4 oz Most Recent Monitor Data Heart Rate from ECG 109 NIBP 94/70 NIBP BP-Mean 78 Respiration from ECG 30 SpO2 99 I&O: 10/31/19 11/01/19 11/02/19 06:59 06:59 06:59 Intake Total 840 1210 Output Total 1170 1100 Balance -330 110 Result Diagrams: 10/31/19 23:34 10/31/19 23:34 Additional Labs: Accuchecks 11/01/19 10:53 POC Glucose 123 H Hospitalist ROS - Medication Medications: Active Medications Generic Name Dose Route Start Last Admin Trade Name Freq PRN Reason Stop Dose Admin Hydrocodone Bitart/Acetaminophen 1 tab 10/28/19 08:03 10/31/19 23:29 [place] 5/325 PO 1 tab Q4H PRN Administration Moderate Pain (4-6) Hydrocodone Bitart/Acetaminophen 2 tab 10/28/19 08:04 10/28/19 21:31 [place] 5/325 PO 2 tab Q4H PRN Administration Severe Pain (7-10) Amiodarone HCl 400 mg 10/30/19 21:00 11/01/19 07:36 Cordarone PO 400 mg BID LAVERNE Administration Aspirin 325 mg 10/29/19 09:00 11/01/19 07:36 Ecotrin PO 325 mg DAILY LAVERNE Administration Atorvastatin Calcium 40 mg 10/29/19 21:00 10/31/19 20:04 Lipitor PO 40 mg HS LAVERNE Administration Carvedilol 12.5 mg 11/01/19 08:00 11/01/19 07:37 Coreg PO 12.5 mg BID-WM LAVERNE Administration Furosemide 40 mg 11/01/19 09:00 11/01/19 07:36 Lasix PO 40 mg 0900,1400 LAVERNE Administration Lisinopril 5 mg 10/31/19 09:00 11/01/19 07:35 Zestril PO 5 mg DAILY LAVERNE Administration Pantoprazole Sodium 40 mg 10/29/19 09:00 11/01/19 07:36 Protonix PO 40 mg DAILY LAVERNE Administration Potassium Chloride 20 meq 10/26/19 14:03 10/29/19 05:00 Kcl IVPB 20 meq PRN PRN Administration K level </= 4.0 Potassium Chloride 40 meq 11/01/19 08:00 11/01/19 07:36 K-Dur PO 40 meq BID-WM LAVERNE Administration Sodium Chloride 10 ml 10/26/19 14:03 11/01/19 07:37 Flush - Normal Saline IVF 10 ml Q12HR LAVERNE Administration - Exam Eye: PERRL, anicteric sclera Heart: RRR, no murmur, no gallops, no rubs Respiratory: CTAB, no wheezes, no rales, no ronchi, normal chest expansion Gastrointestinal: soft, non-tender, non-distended, normal bowel sounds, no palpable masses Extremities: no cyanosis, no edema Hosp A/P (1) CAD (coronary artery disease) Code(s): I25.10 - ATHSCL HEART DISEASE OF [place] CORONARY ARTERY W/O ANG PCTRS Status: Acute (2) S/P CABG x 4 Status: Acute (3) BRADLY (acute kidney injury) Code(s): N17.9 - ACUTE KIDNEY FAILURE, UNSPECIFIED Status: Acute (4) Acute exacerbation of CHF (congestive heart failure) Code(s): I50.9 - HEART FAILURE, UNSPECIFIED Status: Acute (5) HTN (hypertension) Code(s): I10 - ESSENTIAL (PRIMARY) HYPERTENSION Status: Chronic (6) MEHNAZ (obstructive sleep apnea) Code(s): G47.33 - OBSTRUCTIVE SLEEP APNEA (ADULT) (PEDIATRIC) Status: Chronic - Plan * CAD- s/p CABG- stable- * He has been cleared for discharge * All questions answered, and risks and benefits of all new medications discussed, including Lisinopril and carvediolol.
[2019-11-01] MEDS: HYDROcodone/Acetaminophen 5/325 mg Tablet PO PRN (15:30)
--- NOTE | 2019-11-01 21:19 | DIS ---
DATE OF ADMISSION: 10/23/2019 DATE OF DISCHARGE: 11/01/2019 PRIMARY CARE PHYSICIAN: Dr. Zelaya. DISCHARGE DISPOSITION: Home. DISCHARGE DIAGNOSES: 1. Coronary artery disease. 2. Status post coronary artery bypass grafting. 3. Acute systolic heart failure. 4. Dyslipidemia. 5. Obstructive sleep apnea. 6. Hypertension. DISCHARGE MEDICATIONS: Include: 1. Potassium chloride 40 mEq twice a day. 2. Protonix 40 mg daily. 3. Nitrostat 0.4 sublingual daily. 4. Lisinopril 5 mg daily. 5. [place] 5/500 one to two tablets q.4 hours as needed for pain. 6. Lasix 40 mg daily. 7. Carvedilol 12.5 mg twice daily. 8. Lipitor 40 mg at bedtime. 9. Aspirin 325 mg daily. 10. Amiodarone 400 mg twice a day. IMAGING AND PROCEDURES DONE DURING THE HOSPITAL STAY: The patient had a cardiac catheterization showing severe three-vessel coronary artery disease and severely impaired left ventricular function. The patient had an echocardiogram in which the ejection fraction was estimated at 15% to 20%. There is dyskinetic motion of the apical wall of the left ventricle and moderate mitral regurgitation and [id number] tricuspid regurgitation was noted. The patient also had 4-vessel coronary bypass grafting with JOSHI to the LAD. CODE STATUS: Full code. ALLERGIES: NO KNOWN DRUG ALLERGIES. HOSPITAL COURSE: Mr. Cruz is a pleasant 59-year-old gentleman, who presented to the emergency room with complaints of increasing shortness of breath. He also noted increasing lower extremity edema. He thought he was having an exacerbation of his obstructive sleep apnea and had tried using his CPAP machine without much improvement. He came to the emergency room for evaluation and it was noted that he had slight elevation in his troponin. Cardiology was consulted and he underwent cardiac catheterization. He was found to have severe three-vessel coronary artery disease and newly detected severe left ventricular depression in his LV function. He was evaluated by Cardiovascular Surgery and underwent four-vessel bypass grafting. The patient required intra-aortic balloon pump due to hypotension. He was able to be weaned off the balloon pump the following day and then subsequently released from the ICU. He progressed well and had an uneventful postoperative course with the exception of the development of atrial fibrillation in which he was placed on amiodarone. He was evaluated for a LifeVest due to the patient's low ejection fraction and once the LifeVest was placed, he was able to be discharged home with close outpatient followup. All of the new medications that he was started on including the lisinopril and carvedilol, the risks and benefits were discussed with the patient, and all questions were answered and also when to seek further help as far as returning to the emergency room. Job ID: [id number]
--- NOTE | 2019-11-02 23:28 | EKG ---
Test Reason : Blood Pressure : / mmHG Vent. Rate : 087 BPM Atrial Rate : 087 BPM P-R Int : 150 ms QRS Dur : 088 ms QT Int : 442 ms P-R-T Axes : 037 -12 081 degrees QTc Int : 531 ms Normal sinus rhythm Low voltage QRS Cannot rule out Anteroseptal infarct , age undetermined Prolonged QT Abnormal ECG No previous ECGs available Confirmed by Prasanna MACIAS ([id number]) on 11/02/2019 11:28:15 PM Referred By: ROSEANNA Confirmed By:Prasanna MACIAS
== END 2019-11-01 15:45 | disposition home or self-care (01) | DRG 233 ==
LOC: OBSVTOIN 17:03 → 2SW 17:03 → 2NO 10-24 21:53 → CCU 10-26 08:50 → 2NO 10-29 07:56
PROVIDERS: ADMIT Internal Medicine; ATTEND Internal Medicine
PROC: 4A023N7 Measurement of Cardiac Sampling and Pressure, Left Heart, Percutaneous Approach (ICD-10-PCS; 2019-10-25)
PROC: B2111ZZ Fluoroscopy of Multiple Coronary Arteries using Low Osmolar Contrast (ICD-10-PCS; 2019-10-25)
PROC: 02100Z9 Bypass Coronary Artery, One Artery from Left Internal Mammary, Open Approach (ICD-10-PCS; principal; 2019-10-26)
PROC: 02100AW Bypass Coronary Artery, One Artery from Aorta with Autologous Arterial Tissue, Open Approach (ICD-10-PCS; 2019-10-26)
PROC: 021109W Bypass Coronary Artery, Two Arteries from Aorta with Autologous Venous Tissue, Open Approach (ICD-10-PCS; 2019-10-26)
PROC: 06BQ4ZZ Excision of Left Saphenous Vein, Percutaneous Endoscopic Approach (ICD-10-PCS; 2019-10-26)
PROC: 05B90ZZ Excision of Right Brachial Vein, Open Approach (ICD-10-PCS; 2019-10-26)
PROC: 5A02210 Assistance with Cardiac Output using Balloon Pump, Continuous (ICD-10-PCS; 2019-10-26)
PROC: 5A1221Z Performance of Cardiac Output, Continuous (ICD-10-PCS; 2019-10-26)
PROC: 02L70ZK Occlusion of Left Atrial Appendage, Open Approach (ICD-10-PCS; 2019-10-26)
PROC: 0W9B00Z Drainage of Left Pleural Cavity with Drainage Device, Open Approach (ICD-10-PCS; 2019-10-26)
DX: I25.10 Atherosclerotic heart disease of native coronary artery without angina pectoris (principal); I50.21 Acute systolic (congestive) heart failure; N17.9 Acute kidney failure, unspecified; J90 Pleural effusion, not elsewhere classified; I13.0 Hypertensive heart and chronic kidney disease with heart failure and stage 1 through stage 4 chronic kidney disease, or unspecified chronic kidney disease; Z20.828 Contact with and (suspected) exposure to other viral communicable diseases; N18.2 Chronic kidney disease, stage 2 (mild); E78.5 Hyperlipidemia, unspecified; G47.33 Obstructive sleep apnea (adult) (pediatric); I08.1 Rheumatic disorders of both mitral and tricuspid valves; I25.5 Ischemic cardiomyopathy; R80.9 Proteinuria, unspecified; I95.9 Hypotension, unspecified; I48.91 Unspecified atrial fibrillation; Z79.82 Long term (current) use of aspirin
CPT/HCPCS: 36415; 36416; 36430; 71045; 76000; 80048; 80061; 80076; 82805; 83036; 83735; 83880; 84100; 84156; 84443; 85025; 85347; 85610; 85730; 86850; 86900; 86901; 93005; 93010; 93306; 93458; 93798; 94002; 94003; 94150; 99152; 99153; C1769; J0171; J0282; J1160; J1644; J1650; J1815; J1940; J2001; J2250; J2260; J2270; J2440; J2720; J3010; J3370; J3475; J3480; J3490; J7070; P9045; Q0162; Q9967; S0017; S0028